=== PATIENT | female | born 1940 | race Caucasian/White ===

== ENCOUNTER 2018-11-09 06:16 | Emergency (ER) | payer MEDICARE, SELFPAY ==
[2018-11-09 06:16] VITALS: BP 142/67; PULSE 64; RESP 16; TEMP 36.4; O2SAT 98; BMI 33.3
--- NOTE | 2018-11-09 06:25 | RAD_ITS ---
STUDY: X-RAY - RIGHT HAND REASON FOR EXAM: Female, 78 years old. Right-sided hand pain after fall. TECHNIQUE: 3 view(s) of the hand. COMPARISON: None. FINDINGS: There is joint space narrowing of the radiocarpal articulation consistent with degenerative arthrosis. Normal distal radioulnar joint. There is diffuse demineralization of the carpal bones. Normal carpal articulations There is degenerative arthrosis of the carpometacarpal (CMC) articulation of the thumb. Normal second through fifth carpometacarpal joints. There is deformity of the proximal fifth metacarpal suggesting an acute fracture. The metacarpals otherwise have a normal appearance. There is degenerative arthrosis of the metacarpophalangeal (MCP) joints. There is degenerative arthrosis of the interphalangeal joint of the thumb with articular joint space narrowing. Normal proximal and distal phalanges of the thumb. Normal metacarpophalangeal joints of the second through fifth fingers. There is diffuse articular joint space narrowing of the proximal and distal interphalangeal joints of the second through fifth fingers, but without erosive changes or periarticular soft tissue swelling. Normal phalanges of the second through fifth fingers. There is moderately severe periarticular soft tissue swelling of the fingers. RAD/Hand Min 3 Views IMPRESSION: 1. Acute fracture of the proximal fifth metacarpal. 2. Soft tissue swelling of the fingers. 3. 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 4. Osteopenia. Electronically Signed: Lorri Wang MD at 7:13 EDT , Service support ,
--- NOTE | 2018-11-09 06:25 | CT_ITS ---
STUDY: CT BRAIN WITHOUT CONTRAST REASON FOR EXAM: Female, 78 years old. Status post fall with closed head injury and soft tissue contusion. RADIATION DOSAGE (If Supplied By Facility): CTDIvol = ( 44.99 ) mGy, DLP = ( 779.24 ) mGycm TECHNIQUE: Transaxial CT imaging of the brain was performed without administration of intravenous contrast material. Multiplanar reformations are submitted for interpretation. Individualized dose optimization techniques were used for this CT. COMPARISON: None. FINDINGS: There is a large right paramedian frontal hematoma with soft tissue emphysema consistent with associated laceration. There may be some associated right-sided preseptal orbital soft tissue edema. Normal calvarium. There appear to be multiple punctate parenchymal calcifications. This may be the result of previous infection. There is mild cerebral atrophy with widening of the extra-axial spaces and ventricular dilatation. There are areas of decreased attenuation within the white matter tracts of the supratentorial brain, consistent with microvascular disease changes. Normal basal ganglia and thalami. Normal brainstem. Normal cerebellum. There is no intracranial hemorrhage. There is mild atherosclerotic calcification of the intracranial arteries. There are small mucous retention cyst left maxillary sinus. CT/Brain/Head without Contrast IMPRESSION: 1. Chronic involutional changes of the brain. 2. No CT evidence of acute intracranial hemorrhage. 3. Large right paramedian frontal and forehead hematoma. 4. Multiple parenchymal calcifications suggest sequela of previous infection. Electronically Signed: Lorri Wang MD at 7:58 EDT , Service support ,
--- NOTE | 2018-11-09 06:26 | ED.VIS.GEN ---
History of Present Illness Chief Complaint: Fall Informant: Patient, Family Narrative: She stated that she tripped over the dog leash just prior to arrival. She fell onto the concrete. She struck her right forehead and cheek. She also injured the lateral aspect of her fifth little finger. No loss of consciousness. No blood thinners. She has localized tenderness to each of these regions. Denies any neck pain or injury or other injury to her body. Current severity is mild to moderate. No nausea vomiting or other symptoms. No headache. Past Medical History - Allergies and Home Meds Allergies/Adverse Reactions: Allergies No Known Allergies Allergy (Verified 11/09/18 06:31) Primary Care Physician: Rachell Bates MD [Primary Care Provider] - Prior records reviewed: Yes Past Medical History: - - Reviewed Surgical History: noncontributory Lives: With Family Alcohol: None Drugs: None Review of Systems General: Denies: Chills, Fever, Sweats Eyes: Denies: Visual changes - bilaterally, Diplopia ENT: Denies: Rhinorrhea, Sore throat Cardiovascular: Denies: Chest pain, Palpitations Respiratory: Denies: Dyspnea, Cough, Dyspnea on exertion Gastrointestinal: Denies: Abdominal pain, Nausea, Vomiting, Diarrhea, Melena, Hematochezia Genitourinary: Denies: Dysuria, Hematuria, Frequency Musculoskeletal: Reports: Extremity Pain, - - History of present illness. Denies: Back pain Skin: Reports: Abrasions, Wounds, - - See HPI. Denies: Rash Neurological: Reports: Headache. Denies: Weakness, Numbness Physical Exam Vital Signs/Narrative: Vital Signs Temp Pulse Resp BP Pulse Ox 11/09/18 06:16 97.6 F L 64 16 142/67 H 98 General: Well nourished, Well developed, No Acute Distress Head: Trauma - She has superficial abrasion around her right eyebrow. She has an abrasion to her right cheek as well. No bony step-off or deformity. Patient has very superficial laceration just above her right eyebrow. Soft tissue swelling.. Negative for: Normocephalic, Atraumatic Eyes: Perrl, EOMI ENT: Moist mucous membranes, No rhinorrhea Neck: Supple, Nontender Cardiovascular: Regular rate, Regular rhythm, No murmurs Respiratory: No distress, CTA bilaterally, Chest nontender Abdomen: Soft, Nontender, Nondistended, Normal bowel sounds Back: Nontender, Normal Inspection Extremities: No edema, Tenderness - He has tenderness over a small 0.5 cm laceration to the lateral aspect of the right fifth finger. Mild swelling. Skin: Trauma, - - Above Neurological: Alert, Oriented x3, Cranial nerves II-XII grossly intact, Normal Strength, Normal Sensation Psychological: Normal affect, Normal Mood Diagnostic/Tx/Re-eval - Medical Decision Making Given injection of morphine. Tetanus updated. CT head and x-ray of the right hand obtained. CT neg for acute pathology. Mild soft tissue swelling to the scalp. Fifth metacarpal fracture nondisplaced noted. Her wounds were cleansed her right finger was washed with chlorhexidine and anesthetized with 2 cc of 1% lidocaine. It was closed with 4 simple sutures. Her scalp wound was cleansed. She had 3 sutures placed in a laceration in her scalp. I placed a ulnar gutter splint Ortho-Glass prefab to her right hand. She will follow-up with orthopedics. ED Disposition - Plan for ED Patient: Disposition: [facility] - NA Diagnosis: Forehead abrasion, Finger laceration, Multiple contusions, Hand fracture, right Instructions: ED Mechanical Fall, ED Laceration All Referrals: Rachell Bates MD [Primary Care Provider] - Jimmie Bravo MD [STAFF PHYSICIAN] -
[2018-11-09] MEDS: Morphine 2 MG/ML Syringe IM (06:34)
[2018-11-09] MEDS: Diphth,Pertuss(Acell),Tet Vac 0.5 ML Vial IM (06:38)
[2018-11-09 08:18] VITALS: BP 138/65; PULSE 88; RESP 18; O2SAT 97
== END 2018-11-09 08:19 | disposition home or self-care (01) ==
PROVIDERS: Emergency Provider Emergency Medicine; Family Provider Internal Medicine; PCP Internal Medicine
DX: S01.01XA Laceration without foreign body of scalp, initial encounter (principal); S61.216A Laceration without foreign body of right little finger without damage to nail, initial encounter; S62.306A Unspecified fracture of fifth metacarpal bone, right hand, initial encounter for closed fracture; W01.0XXA Fall on same level from slipping, tripping and stumbling without subsequent striking against object, initial encounter; Y93.K1 Activity, walking an animal; Y92.9 Unspecified place or not applicable; Y99.9 Unspecified external cause status; Z23 Encounter for immunization; Z79.899 Other long term (current) drug therapy
CPT/HCPCS: 12001; 70450; 73130; 90715; 96372; 99284

== ENCOUNTER → 2020-05-26 15:30 | Outpatient (CLI) | payer MEDICARE, SELFPAY ==
--- NOTE | 2020-05-26 16:35 | RAD_ITS ---
STUDY: X-RAY - ABDOMEN/PELVIS REASON FOR EXAM: Female, 79 years old. CHEST PAIN, HX COLITIS TECHNIQUE: 1 view COMPARISON: None. FINDINGS: Moderate elevation of right diaphragm. Nondistended stomach and small bowel. Mild nonspecific minimal increase in small bowel gas and a moderate general increase in colonic bowel gas without a substantial amount of stool. Negative for free air. Negative organomegaly, abdominal or pelvic calcifications. Normal soft tissue structures. There are diffuse degenerative changes of the visualized lumbar spine. RAD/Abdomen Single View IMPRESSION: Nonspecific moderate general increase in colonic bowel gas without evidence of obstruction or substantial solid stool. Nondistended stomach and small bowel. Negative for organomegaly, abdominal or pelvic calcifications. Electronically Signed: Елена Harrison MD at 17:03 EDT , Service support ,
--- NOTE | 2020-05-26 16:37 | RAD_ITS ---
STUDY: X-RAY CHEST REASON FOR EXAM: Female, 79 years old. CHEST PAIN, BRONCHITIS TECHNIQUE: Frontal and lateral views of the chest. COMPARISON: None. FINDINGS: Mild elevation of the right hemidiaphragm. The lungs are clear and expanded. There is no demonstrated pleural abnormality. Normal size heart. Normal mediastinum and behzad. Normal visualized pulmonary arteries. Normal visualized aortic arch and descending thoracic aorta. There are diffuse degenerative changes of the visualized thoracic spine. Normal visualized ribs, clavicles, and shoulders. There is no demonstrated abnormality of the visualized soft tissue structures of the upper abdomen. RAD/Chest PA and Lateral IMPRESSION: No acute pulmonary findings. Electronically Signed: Rodger Jerome MD at 0:12 EDT Tel , Service support ,
[2020-05-26 18:21] LABS: Absolute Lymphocyte Count 1.81 X10^3/uL (0.83-4.51); Basophil# 0.05 X10^3/uL; Eosinophil# 0.17 X10^3/uL; Eosinophils% 3.4 % (0-5); Hematocrit 41.7 % (37-47); Hemoglobin 13.5 g/dL (12.0-15.0); Lymphocyte # 1.81 X10^3/ul (4.0); Lymphocyte % 36.2 % (19-41); Mean Corp Hgb Conc 32.4 g/dL (32-36); Mean Corpuscular Hgb 32.5 pg (27.0-32.0); Mean Corpuscular Volume 100.5 fL (81-99); Mean Platelet Vol. 11.2 fl (6.2-12.0); Monocyte# 0.94 X10^3/uL; Monocyte% 18.8 % (0-10); NRBC Flagged by Analyzer 0 % (0-5); Neutrophil # 2.02 X10^3/uL (2.7-7.7); Neutrophil % 40.4 % (47-70); Platelet Count 190 K/mm3 (150-450); RBC Distribution Width CV 13.4 % (11.6-14.6); RBC Distribution Width SD 49.5 fl (35.1-43.9); Red Blood Count 4.15 M/mm3 (4.2-5.4)
[2020-05-26 18:35] LABS: D-Dimer Quantitative (DVT/PE) 0.82 FEU/ug/m (0.27-0.49)
[2020-05-26 18:50] LABS: Vitamin D,25 Hydroxy 71.2 ng/mL
[2020-05-26 19:05] LABS: ALB/GLOB Ratio 0.9 RATIO (0.9-2.4); AST(SGOT) 21 U/L (15-37); Alanine Aminotransfer ALT/SGPT 23 U/L (13-56); Albumin, Serum 3.5 g/dL (3.2-5.0); Alkaline Phosphatase 110 U/L (45-117); Anion Gap 5 (5-15); BUN 11 mg/dL (7-18); BUN/Creat Ratio 12.2 RATIO (10-20); CPK Total, Creatine Kinase 73 U/L (26-192); Calcium,Total 8.5 mg/dL (8.5-10.1); Chloride 105 mmol/L (98-107); EST Glomerular Filtration Rate 64 mL/min (>60); Est Glom Filt Rate - Afr Amer 77 mL/min (>60); Globulin 3.7 g/dL (2.2-4.2); Glucose 89 mg/dL (74-106); Potassium 3.3 mmol/L (3.5-5.1); Protein, Total 7.2 g/dL (6.4-8.2); Sodium Level 139 mmol/L (136-145); Thyroid Stim Hormone (TSH) 2.19 uIU/mL (0.358-3.74)
[2020-05-26 19:06] LABS: BNP,B-Type NATRIURETIC PEPTIDE 62.5 pg/mL (0-100)
[2020-05-28 10:31] LABS: Myoglobin, Serum 42 ng/mL (25-58)
== END ==
LOC: POLAB3 15:31 → RAD 16:34
PROVIDERS: PCP Family Medicine Geriatric Medicine; Referring Provider Family Medicine Geriatric Medicine; Visit Provider Family Medicine Geriatric Medicine
DX: R07.9 Chest pain, unspecified (principal); R06.02 Shortness of breath; I10 Essential (primary) hypertension; E55.9 Vitamin D deficiency, unspecified
CPT/HCPCS: 36415; 71046; 74018; 80053; 82306; 82550; 83874; 83880; 84443; 84484; 85025; 85379

== ENCOUNTER → 2020-05-27 09:05 | Outpatient (CLI) | payer MEDICARE, SELFPAY | PROVIDERS: PCP Family Medicine Geriatric Medicine; Referring Provider Family Medicine Geriatric Medicine; Visit Provider Family Medicine Geriatric Medicine | DX: R50.9 Fever, unspecified (principal) | CPT/HCPCS: 87633; 87635; C9803; U0003 ==

== ENCOUNTER → 2020-06-26 08:24 | Outpatient (CLI) | payer MEDICARE, SELFPAY ==
[2020-06-03 14:20] VITALS: BMI 36.6
--- NOTE | 2020-06-26 08:24 | CT_ITS ---
STUDY: CT CHEST WITH CONTRAST REASON FOR EXAM: Female, 79 years old. BRONCHITIS,RHINOVIRUS, LT SHOUDER/ARM PAIN RADIATION DOSAGE (If Supplied By Facility): CTDIvol = ( 13.99 ) mGy, DLP = ( 567.84 ) mGycm TECHNIQUE: Transaxial imaging was performed following intravenous administration of IV 100mL Isovue-300. Multiplanar coronal and sagittal images were reformatted. Individualized dose optimization techniques were used for this CT. COMPARISON: None. FINDINGS: Minimal degree of increased markings at the right lung base suggestive of mild scarring. No focal consolidation is seen. Minimal left basilar scarring as well. There is no demonstrated pleural abnormality. There are calcifications of the coronary arteries. Normal mediastinum. Normal hilar regions. Normal enhanced pulmonary arteries. Normal aorta arch and descending thoracic aorta. There are multi-level degenerative changes of the thoracic spine. There is no demonstrated abnormality of the visualized upper abdomen. CT/Chest WITH Contrast IMPRESSION: Mild scarring at the lung bases. No pulmonary infiltrate is seen. Electronically Signed: Josep Elkins, at 10:35 EDT , Service support ,
--- NOTE | 2020-06-26 08:24 | ECHOCS_ITS ---
Reason For Study: Dyspnea/SOB Procedure This was a 2D Doppler, Color Flow transthoracic echocardiogram. The study was technically difficult. Contrast injection was performed. Exam performed in department. Left Ventricle Normal LV size. Left ventricular systolic function is normal. The estimated ejection fraction is 60 %. No regional wall motion abnormalities noted. Right Ventricle Normal RV size. Normal systolic function. Atria Normal left atrium. Normal right atrium. Mitral Valve There is mild mitral annular calcification. Mild (1+) eccentric mitral valve insufficiency. Tricuspid Valve Normal tricuspid valve. Mild (1+) tricuspid valve insufficiency. Pulmonary artery systolic pressure is 36 mmHg. Aortic Valve Trisinus/trileaflet aortic valve. Mild (1+) aortic valve insufficiency. Pulmonic Valve Normal pulmonic valve. Great Vessels Normal aortic root. The pulmonary artery is normal size. Normal inferior vena cava. Pericardium/Pleural No pericardial effusion. Medication Diluted definity 2ml given slow IV push to enhance endocardial definition. Performed a rapid injection of agitated mix of 9 cc saline and 1cc air to assess for atrial septal defect. MMode/2D Measurements & Calculations LVIDd: 3.7 cm IVSd: 1.3 cm LA dimension: 3.4 cm LVIDs: 2.2 cm LVPWd: 0.99 cm FS: 40.9 % LAV(MOD-sp4): 48.8 ml LA A4 area: 17.5 cm2 RA A4 area: 13.1 cm2 Time Measurements MV dec time: 0.17 sec Doppler Measurements & Calculations MV E max mingo: 79.8 cm/sec Lat Peak E' Mingo: 5.8 cm/sec Med Peak E' Mingo: 6.8 cm/sec MV A max mingo: 119.7 cm/sec E/E' lat: 13.7 E/E' med: 11.8 MV E/A: 0.67 MV V2 max: 126.6 cm/sec MV P1/2t max mingo: 90.6 cm/sec Ao V2 max: 156.0 cm/sec MV max P.4 mmHg MV P1/2t: 77.6 msec Ao max P.7 mmHg MV V2 mean: 66.6 cm/sec MV dec slope: 342.3 cm/sec2 MV mean P.2 mmHg MV V2 VTI: 31.0 cm MVA(P1/2t): 2.8 cm2 AI max mingo: 421.2 cm/sec LV V1 max: 127.8 cm/sec PA V2 max: 94.4 cm/sec AI max P.0 mmHg LV V1 max P.5 mmHg AI dec slope: 272.2 cm/sec2 AI P1/2t: 453.2 msec TR max mingo: 286.8 cm/sec TR max P.9 mmHg Interpretation Summary Normal LV size. Left ventricular systolic function is normal. The estimated ejection fraction is 60 %. Mild (1+) eccentric mitral valve insufficiency. Mild (1+) aortic valve insufficiency. Pulmonary artery systolic pressure is 36 mmHg. Contrast injection was performed. Ordering Physician: Anthony Manning Referring Physician: Ghanshyam Rey Chi Performed By: Steve Swann RCS
--- NOTE | 2020-06-26 13:19 | STRESSREP_ITS ---
Stress Test Report Pharmacologic myocardial perfusion stress test. 79-year-old lady with a history of chest pain. Stress protocol: Resting KG demonstrates normal sinus rhythm with a rate of 73 bpm normal intervals are noted resting blood pressure is 132/84 mmHg. 0.4 mg of regadenoson was infused per usual protocol followed Intravenous saline flush injection continuous vehicle monitor technician was performed. The maximum heart rate attained was 114 bpm which was 81% of maximum predicted heart rate the maximum workload was 1 metabolic equivalent. The initial blood pressure was 132/84 with a final blood pressure 128/82. Myocardial perfusion protocol. 15.0 mCi of technetium 99m sestamibi was injected at rest. 0.4 mg of regadenoson was infused per usual protocol. At peak infusion 44.0 mCi of technetium 99m sestamibi was injected stress images were obtained stress and rest images were reconstructed and compared in the short axis vertical long horizontal long axis. Gated images were also obtained per Perfusion SPECT analysis: Review of the stress images demonstrate normal uptake of tracer noted in all areas of the myocardium the resting images similar demonstrate normal uptake of tracer noted in all areas of the myocardium. No areas of reversibility are noted suggest ischemia no previous infarct is noted. Gated SPECT analysis: The gated ejection fraction is over 80%. Conclusion: Normal pharmacologic myocardial perfusion stress test. Preserved ejection fraction.
== END ==
PROVIDERS: PCP Internal Medicine; Referring Provider Internal Medicine Cardiovascular Disease; Visit Provider Internal Medicine Cardiovascular Disease
DX: R06.02 Shortness of breath (principal); R07.9 Chest pain, unspecified
CPT/HCPCS: 71260; 78452; 93017; 93306; A9500; Q9957; Q9967; A4216; C8929; J2785

== ENCOUNTER → 2020-07-08 15:31 | Outpatient (CLI) | payer MEDICARE, SELFPAY ==
[2020-06-03 14:20] VITALS: BMI 36.6
[2020-07-08 19:00] LABS: CRP < 2.90 mg/L (0.0-3.0)
[2020-07-10 16:08] LABS: Endomysial Antibody IgA Negative (Negative)
[2020-07-10 17:42] LABS: Immunoglobulin A 342 mg/dL (64-422); t-Transglutaminase IgA <2 U/mL (0-3)
== END ==
PROVIDERS: PCP Internal Medicine; Referring Provider Internal Medicine Gastroenterology; Visit Provider Internal Medicine Gastroenterology
DX: R19.7 Diarrhea, unspecified (principal)
CPT/HCPCS: 36415; 82784; 83516; 86140; 86255

== ENCOUNTER → 2020-07-17 | Outpatient (CLI) | payer MEDICARE, SELFPAY ==
[2020-07-10 08:19] VITALS: BMI 35.8
--- NOTE | 2020-07-17 11:36 | COLBX_PTH ---
PATIENT: COOPER ALONZO LOC: [facility] U#:[id number] AGE/SX: 80/F ROOM: RE07/17/[address]: Dr. Kwabena Howard MD : 1940 BED: DIS: 07/17/2020 SPEC #: [id number] RECD: 07/17/20 15:24 STATUS: CLARENCE RESkylar #: [id number] GINA: 07/17/20 11:[address]: Kwabena Howard DEPT: SURGICAL PATHOLOGY RECD BY: Farheen Gardner ENTERED: 07/20/20 07:27 SP TYPE: COLON BX OTHR DR: Dr. Rachell Bates MD [facility] Tissues: COLON BIOPSY Procedures: Trichrome (control) Special Stain Group II Surgery Specimen Level IV HEADER OPERATION: Colonoscopy with biopsies PRE-OP DIAGNOSIS: Diarrhea TISSUE SUBMITTED: Right and left colon biopsies, rule out microscopic colitis MICROSCOPIC DIAGNOSIS Right and left colon, biopsy: Lymphocytic colitis. See comment. AM:chago 07/21/20 MICROSCOPIC DESCRIPTION Slides are reviewed. GROSS DESCRIPTION Received in fixative is one container labeled with the patient's name and designated right and left colon biopsy. The specimen consists of multiple irregular fragments of light ramos soft tissue that in aggregate measure 1.5 x 0.7 x 0.1 cm. The specimen is totally submitted in one cassette. / AM:chago 07/20/20 TC:3 CPT: 20583, 99159
== END | disposition home or self-care (01) ==
LOC: LABSPEC 15:44
PROVIDERS: PCP Internal Medicine; Visit Provider Internal Medicine Gastroenterology
DX: K52.9 Noninfective gastroenteritis and colitis, unspecified (principal)
CPT/HCPCS: 88305; 88313

== ENCOUNTER 2020-09-25 12:44 | Outpatient (RCR) | payer MEDICARE, SELFPAY ==
[2020-07-10 08:19] VITALS: BMI 35.8
== END 2020-09-25 23:59 ==
LOC: IMMUN 12:44
PROVIDERS: PCP Family Medicine Geriatric Medicine; Referring Provider Family Medicine; Visit Provider Family Medicine
DX: Z23 Encounter for immunization (principal)
CPT/HCPCS: 0011A; 0012A; 91301

== ENCOUNTER → 2020-11-05 12:30 | Outpatient (CLI) | payer MEDICARE, SELFPAY ==
[2020-07-10 08:19] VITALS: BMI 35.8
--- NOTE | 2020-11-05 12:40 | RAD_ITS ---
STUDY: X-RAY - LUMBAR SPINE REASON FOR EXAM: Female, 80 years old. LOW BACK PAIN TECHNIQUE: 3 view(s) of the lumbar spine were obtained. COMPARISON: None FINDINGS: Normal lumbar lordosis. There is no substantial scoliosis. There is a normal alignment of the vertebrae from L1 to L4. There is a grade 1 spondylolisthesis at L4-5. There is anatomic alignment of L5 and S1.. There is multilevel endplate spondylosis of the lumbar vertebrae. There is multi-level degenerative disc disease with multi-level disc space narrowing. There is a chronic compression fracture affecting the superior endplate of L4. No acute fracture There is atherosclerotic calcification of the abdominal aorta without a demonstrated aneurysm. RAD/Lumbar Spine 2 or 3 Views IMPRESSION: Degenerative changes of the spine, as detailed above. No acute fracture. Chronic compression fracture at L4 Grade 1 spondylolisthesis at L4-5 Electronically Signed: Ernesto Mckeon MD at 13:17 EST , Service support ,
== END ==
PROVIDERS: PCP Family Medicine Geriatric Medicine; Visit Provider Family Medicine Geriatric Medicine
DX: M54.5 Low back pain (principal)
CPT/HCPCS: 72100

== ENCOUNTER 2020-11-13 09:16 | Emergency (ER) | payer MEDICARE, SELFPAY ==
[2020-07-10 08:19] VITALS: BMI 35.8
[2020-11-13 09:17] VITALS: BP 191/78; PULSE 72; RESP 18; TEMP 36.4; O2SAT 98; BMI 36.6
[2020-11-13 09:32] VITALS: RESP 16
--- NOTE | 2020-11-13 09:32 | CT_ITS ---
STUDY: CT LUMBAR SPINE WITHOUT CONTRAST REASON FOR EXAM: Female, 80 years old. Back pain. Difficulty with ambulation. RADIATION DOSAGE (If Supplied By Facility): CTDIvol = ( 34.48 ) mGy, DLP = ( 915.60 ) mGycm TECHNIQUE: The patient was scanned in a multi detector CT scanner. High resolution transaxial imaging was performed. Images were obtained from L1 to S1 vertebral level. Sagittal and coronal images were reconstructed. Individualized dose optimization techniques were used for this CT. COMPARISON: None FINDINGS: Normal lumbar lordosis. There is no substantial scoliosis. Normal vertebrae of the lumbar spine. L1-2: Normal endplates. Normal disc height and morphology. Normal bilateral facet joints. Normal central canal and bilateral lateral recesses. Normal bilateral intervertebral neural foramina. L2-3: Normal endplates. Normal disc height and morphology. Normal bilateral facet joints. Normal central canal and bilateral lateral recesses. Normal bilateral intervertebral neural foramina. L3-4: Moderate degree of central canal stenosis due to hypertrophy of the facet joints and the ligamentum flavum. L4-5: 10% loss of height of the superior endplate of the L4 vertebra suggestive of possible compression fracture. Moderate degree of central canal stenosis due to hypertrophy of the facet joints and the ligamenta flava. Moderate degree of bilateral neural foraminal stenosis. Minimal anterior listhesis of L4 on L5 most likely secondary to the facet joint osteoarthritis. 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 L5-S1: Normal endplates. Normal disc height and morphology. Normal bilateral facet joints. Normal central canal and bilateral lateral recesses. Normal bilateral intervertebral neural foramina. Atherosclerotic calcification of the abdominal aorta. CT/Spine Lumbar without Contrast IMPRESSION: 10% loss of height of the L4 vertebrae most likely secondary to compression fracture with mild anterior listhesis of L4 on L5. Spinal stenosis at the L4-L5 and L5-S1 levels. Electronically Signed: Josep Elkins MD at 10:45 EDT , Service support ,
--- NOTE | 2020-11-13 09:33 | ED.VIS.GEN ---
History of Present Illness Chief Complaint: Back Informant: Patient Narrative: 80-year-old female presenting with lumbar back pain. She states that she recently had injections from Dr. Rey. She states she was getting more mobility but today when she was getting dressed her back started to hurt and she is unable to walk at this point. She denies saddle paresthesias or loss of bladder or bowel control. She has not fallen. Patient states she has distant history of lumbar laminectomy multiple years ago. She denies any other complaints at this time. Past Medical History - Allergies and Home Meds Allergies/Adverse Reactions: Allergies mesalamine [From Asacol] Allergy (Verified 11/13/20 09:20) unknown trazodone Allergy (Verified 11/13/20 09:20) Unknown Primary Care Physician: Rangel Teixeira DO [STAFF PHYSICIAN] - Ghanshyam Rey Chi, MD [Primary Care Provider] - Past Medical History: - - Lightest, hypothyroidism, hypertension Surgical History: - - lumbar laminectomy Lives: Alone Smoking Status: Never smoker Alcohol: None Drugs: None Review of Systems General: Denies: Chills, Fever, Sweats Eyes: Denies: Visual changes - bilaterally, Diplopia ENT: Denies: Rhinorrhea, Sore throat Cardiovascular: Denies: Chest pain, Palpitations Respiratory: Denies: Dyspnea, Cough, Dyspnea on exertion Gastrointestinal: Denies: Abdominal pain, Nausea, Vomiting, Diarrhea, Melena, Hematochezia Genitourinary: Denies: Dysuria, Hematuria Musculoskeletal: Reports: Back pain. Denies: Neck pain, Swelling, Extremity Pain Skin: Denies: Rash, Wounds Neurological: Denies: Headache, Weakness, Parasthesia Psych: Denies: Depression, Anxiety Physical Exam Vital Signs/Narrative: Vital Signs Temp Pulse Resp BP Pulse Ox 11/13/20 09:32 16 11/13/20 09:17 97.5 F L 72 18 191/78 H 98 Inital Vital Signs reviewed: Yes General: Well nourished, No Acute Distress Head: Normocephalic, Atraumatic Eyes: Perrl, EOMI ENT: Moist mucous membranes, No rhinorrhea Cardiovascular: Regular rate, Regular rhythm Respiratory: No distress, CTA bilaterally Back: - - Bilateral lumbar paraspinal muscular tenderness. There is no midline spinal tenderness, deformity, step-off. Extremities: Nontender, No edema Skin: Normal color, No rash. Negative for: Cyanosis, Diaphoresis Neurological: Alert, Oriented x3, Cranial nerves II-XII grossly intact Psychological: Normal affect, Normal Mood Diagnostic/Tx/Re-eval Clinical Impression(s) from Imaging Studies Lumbar Spine CT 11/13/20 09:32 IMPRESSION: 10% loss of height of the L4 vertebrae most likely secondary to compression fracture with mild anterior listhesis of L4 on L5. Spinal stenosis at the L4-L5 and L5-S1 levels. Electronically Signed: Josep Elkins MD at 10:45 EDT , Service support , Laboratory Data 11/13/20 09:45 Sodium 143 Potassium 4.0 Chloride 107 Carbon Dioxide 32.0 Anion Gap 4 L BUN 20 H Creatinine 0.93 Estim Creat Clear Calc 37.52 Est GFR (MDRD) Af Amer 74 Est GFR (MDRD) Non-Af 62 BUN/Creatinine Ratio 21.5 H Glucose 101 Calcium 8.9 Total Bilirubin 0.70 AST 16 ALT 26 Alkaline Phosphatase 120 H Total Protein 6.9 Albumin 3.5 Globulin 3.4 Albumin/Globulin Ratio 1.0 - Medical Decision Making 80-year-old female presenting with lumbar back pain. Appears she has compression fracture. I did obtain CT imaging of this today since her pain is worsening. Patient's lab work-up was unremarkable. CT imaging shows 0% loss of height of the L4 vertebrae most likely secondary to compression fracture with mild anterior listhesis of L4 on L5. Patient was given IV Solu-Medrol, morphine for pain. After this I personally ambulated the patient at the bedside and she felt much improved. She will be discharged home with a short supply of [place] and prednisone. She will follow-up with Dr. Teixeira. Patient safe for discharge at this time. Impression: 1. L4 compression fracture ED Disposition - Plan for ED Patient: Disposition: Home or Assisted Living Instructions: ED Fracture, Vertebral Compression Prescriptions: Hydrocodone Bitart/Apap 5-325 [[place] 5MG-325MG] 1 tablet PO Q6H PRN PRN 3 Days #12 tab PRN Reason: Pain Prescription Printed Hydrocodone Bitart/Apap 5-325 [[place] 5MG-325MG] 1 tablet PO Q6H PRN PRN 3 Days #12 tab PRN Reason: Pain Prescription Printed predniSONE tablet 60 mg PO DAILY #3 tab Prescription Printed predniSONE tablet 60 mg PO DAILY #12 tab Prescription Printed Referrals: Ghanshyam Rey Chi, MD [Primary Care Provider] - Rangel Teixeira DO [STAFF PHYSICIAN] -
[2020-11-13] MEDS: Ondansetron 4 MG/2 ML Vial IV (09:48)
[2020-11-13] MEDS: Morphine 4 MG/ML Syringe IV (09:50)
[2020-11-13] MEDS: MethylPREDNISolone 125 MG/2 ML Vial IV (09:50)
[2020-11-13 10:20] LABS: AST(SGOT) 16 U/L (15-37); Alanine Aminotransfer ALT/SGPT 26 U/L (13-56); Albumin, Serum 3.5 g/dL (3.2-5.0); Alkaline Phosphatase 120 U/L (45-117); Anion Gap 4 (5-15); BUN 20 mg/dL (7-18); BUN/Creat Ratio 21.5 RATIO (10-20); Calcium,Total 8.9 mg/dL (8.5-10.1); Chloride 107 mmol/L (98-107); Creatinine, Serum 0.93 mg/dL (0.55-1.02); EST Glomerular Filtration Rate 62 mL/min (>60); Est Glom Filt Rate - Afr Amer 74 mL/min (>60); Estimated Creatinine Clearance 37.52 ml/min; Globulin 3.4 g/dL (2.2-4.2); Glucose 101 mg/dL (74-106); Protein, Total 6.9 g/dL (6.4-8.2); Sodium Level 143 mmol/L (136-145)
[2020-11-13 11:50] VITALS: PULSE 68; RESP 20; O2SAT 95
== END 2020-11-13 11:50 | disposition home or self-care (01) ==
PROVIDERS: Emergency Provider Student in an Organized Health Care Education/Training Program; PCP Family Medicine Geriatric Medicine
DX: S32.048A Other fracture of fourth lumbar vertebra, initial encounter for closed fracture (principal); I10 Essential (primary) hypertension; E03.9 Hypothyroidism, unspecified; X58.XXXA Exposure to other specified factors, initial encounter
CPT/HCPCS: 72131; 80048; 80053; 96374; 96375; 99282; A4216; J2405

== ENCOUNTER → 2020-11-19 07:59 | Outpatient (CLI) | payer MEDICARE, SELFPAY ==
[2020-11-13 09:17] VITALS: BMI 36.6
--- NOTE | 2020-11-19 08:01 | MRI_ITS ---
STUDY: MRI LUMBAR SPINE WITHOUT CONTRAST REASON FOR EXAM: Female, 80 years old. Pain, compression fracture L4 TECHNIQUE: Standardized fat and water weighted pulse sequences were obtained in the sagittal and axial planes. COMPARISON: X-ray 11/05/2020, CT 11/13/2020 FINDINGS: T12-L1: Normal endplates. Normal disc height, hydration and morphology. Normal bilateral facet joints. Normal central canal and bilateral lateral recesses. Normal bilateral intervertebral neural foramina. Normal lumbar lordosis. There is no substantial scoliosis. Normal conus medullaris that terminates at the L1/L2. Acute mild compression fracture of L1 with concavity of the superior endplate cortical disruption and marrow edema along the superior endplate but no retropulsion into the spinal canal. Acute mild compression fracture of L4 with concavity the superior endplate and no retropulsion into the spinal canal. L1-2: Normal endplates. Normal disc height, hydration and morphology. Normal bilateral facet joints. Normal central canal and bilateral lateral recesses. Normal bilateral intervertebral neural foramina. L2-3: Mild bilateral facet hypertrophy and moderate ligament flavum hypertrophy. Mild broad disc protrusion produces mild spinal stenosis and mild bilateral neural foraminal stenosis. L3-4: Mild right facet hypertrophy and moderate left facet hypertrophy with moderate ligament flavum hypertrophy. Mild broad disc protrusion produces mild spinal stenosis and mild bilateral neural foraminal stenosis. L4-5: Severe bilateral facet hypertrophy and moderate ligament flavum hypertrophy. 2 mm of anterolisthesis of L4 on L5 with a mild broad disc protrusion produces mild spinal stenosis and mild bilateral neural foraminal stenosis. L5-S1: Normal endplates. Normal disc height, hydration and morphology. Normal bilateral facet joints. Normal central canal and bilateral lateral recesses. Normal bilateral intervertebral neural foramina. Normal visualized sacral ala. Normal visualized paraspinous soft tissue structures. MRI/Spine Lumbar (Routine) IMPRESSION: 1. Acute mild compression fractures of L1 and L4 along the superior endplates without retropulsion into the spinal canal. 2. Degenerative disc disease as described above. Electronically Signed: Cameron Alvarez MD at 9:37 EDT Tel , Service support ,
== END ==
PROVIDERS: PCP Family Medicine Geriatric Medicine
DX: S32.040A Wedge compression fracture of fourth lumbar vertebra, initial encounter for closed fracture (principal)
CPT/HCPCS: 72148

== ENCOUNTER 2020-11-25 07:57 | Emergency (ER) | payer MEDICARE, SELFPAY ==
[2020-11-25 08:00] VITALS: BP 191/77; PULSE 91; RESP 16; TEMP 36.6; O2SAT 99; BMI 36.8
--- NOTE | 2020-11-25 08:16 | CT_ITS ---
STUDY: CT ABDOMEN AND PELVIS WITH CONTRAST REASON FOR EXAM: Female, 80 years old. abd pain RADIATION DOSAGE (If Supplied By Facility): CTDIvol = ( 23.74 ) mGy, DLP = ( 1724.13 ) mGycm TECHNIQUE: Transaxial images were obtained from the dome of the diaphragm to the symphysis pubis without oral contrast. IV 100mL Isovue-300 was administered. Sagittal and coronal images were reconstructed. Individualized dose optimization techniques were used for this CT. COMPARISON: MRI lumbar spine dated 11/19/2020 FINDINGS: The visualized lung bases are unremarkable. Normal liver. There is non-visualization of the gallbladder, which may be secondary to either contraction or a prior cholecystectomy. Normal spleen. Unremarkable right kidney. Unremarkable left kidney. There is a small hiatal hernia. Normal small intestine. There are multiple colonic diverticula consistent with diverticulosis. There are surgical clips in the region of the appendix consistent with a prior appendectomy. There is atherosclerotic calcification of the abdominal aorta. Normal urinary bladder. There is a small umbilical hernia containing fat. Again noted are the lumbar spine fractures at L1 and L4. CT/Abdomen/Pelvis W IV Cont ONLY IMPRESSION: No bowel obstruction, colitis or diverticulitis. Diverticulosis. Electronically Signed: Harinder Lindsey MD at 9:32 EDT Tel , Service support ,
[2020-11-25] MEDS: 0.9% Normal Saline 1,000 ML 125 ML IV (08:24)
[2020-11-25] MEDS: Ondansetron 4 MG/2 ML Vial IV (08:24)
[2020-11-25 08:25] LABS: Absolute Lymphocyte Count 2.35 X10^3/uL (0.83-4.51); Basophil# 0.04 X10^3/uL; Basophil% 0.3 % (0-1); Eosinophil# 0.08 X10^3/uL; Eosinophils% 0.7 % (0-5); Hematocrit 45.1 % (37-47); Hemoglobin 14.7 g/dL (12.0-15.0); Lymphocyte # 2.35 X10^3/ul (4.0); Lymphocyte % 20.1 % (19-41); Mean Corp Hgb Conc 32.6 g/dL (32-36); Mean Corpuscular Hgb 32.5 pg (27.0-32.0); Mean Corpuscular Volume 99.6 fL (81-99); Mean Platelet Vol. 10.4 fl (6.2-12.0); Monocyte# 1.18 X10^3/uL; Monocyte% 10.1 % (0-10); NRBC Flagged by Analyzer 0 % (0-5); Neutrophil # 7.98 X10^3/uL (2.7-7.7); Neutrophil % 68.5 % (47-70); Platelet Count 279 K/mm3 (150-450); RBC Distribution Width CV 13.8 % (11.6-14.6); RBC Distribution Width SD 50.2 fl (35.1-43.9); Red Blood Count 4.53 M/mm3 (4.2-5.4); White Blood Count 11.7 K/mm3 (4.4-11.0)
[2020-11-25 08:36] LABS: ALB/GLOB Ratio 0.9 RATIO (0.9-2.4); AST(SGOT) 14 U/L (15-37); Alanine Aminotransfer ALT/SGPT 22 U/L (13-56); Albumin, Serum 3.7 g/dL (3.2-5.0); Alkaline Phosphatase 149 U/L (45-117); Anion Gap 4 (5-15); BUN 24 mg/dL (7-18); BUN/Creat Ratio 22.9 RATIO (10-20); Calcium,Total 9.2 mg/dL (8.5-10.1); Chloride 100 mmol/L (98-107); Creatinine, Serum 1.05 mg/dL (0.55-1.02); EST Glomerular Filtration Rate 53 mL/min (>60); Est Glom Filt Rate - Afr Amer 65 mL/min (>60); Estimated Creatinine Clearance 33.23 ml/min; Glucose 119 mg/dL (74-106); Lipase 86 U/L (73-393); Potassium 3.9 mmol/L (3.5-5.1); Protein, Total 7.7 g/dL (6.4-8.2); Sodium Level 135 mmol/L (136-145)
--- NOTE | 2020-11-25 08:52 | ED.VISSUMM ---
- ER Visit Summary Date of Service: 11/25/20 Chief Complaint: Abdominal pain History of Present Illness: The patient is a [address] Rey. She reports that she has abdominal pain that began yesterday. It is a constant aching pain with intermittent sharp episodes. 6 out of 10 at worst and she is pain-free currently. Is worsened by pushing on it. Is relieved remaining still. She had nausea and dry heaves. She reports that she had had a bowel movement for 3 days. She took a dose of milk of magnesia yesterday and has had 3 bowel movements since yesterday. No blood in stools or black tarry stools. No dysuria or frequency. Patient reports she had a colonoscopy a couple months ago by Dr. Howard. Physical Examination: Vitals: Stable. Afebrile. General: Well-nourished and well-developed. Head: Normocephalic atraumatic. Neck: Supple, no lymphadenopathy. No JVD. Nontender. Cardiovascular: Regular rate and rhythm. No murmurs. Respiratory: No respiratory distress. Clear to auscultation bilaterally. Abdominal: Soft, mild diffuse tenderness to palpation, nondistended, normal bowel sounds. No guarding, rebound, or peritoneal signs. Back: Nontender. Extremities: Nontender, no edema. Skin: Normal color, no rash. Neurologic: Alert and oriented ?3. Cranial nerves II through XII are intact. Normal strength and sensation. Psych: Normal affect. Test Results: CBC shows a white count 11.7. Chem-7 shows sodium 135, glucose 119, BUN 24, creatinine 1.05. Alk phos is 149. AST is 14. LFTs are otherwise normal. Lipase is 86. EKG is sinus at [address] changes. There is no old EKG for comparison. Troponin is negative. BNP is 20.3. Lactic acid is 1.1. Clinical Impression(s) from Imaging Studies Abdomen/Pelvis CT 11/25/20 08:16 IMPRESSION: No bowel obstruction, colitis or diverticulitis. Diverticulosis. Electronically Signed: Harinder Lindsey MD at 9:32 EDT Tel , Service support , Emergency Department Course and Treatment: Patient had an IV placed. She was given Zofran and morphine IV. She is resting more comfortably. Treatment Plan: Patient is complaining of severe back pain. Chart review shows patient had an MRI 6 days ago that shows acute mild compression fracture of L1 and L4 without retropulsion. She actually has an appointment to see Dr. Gacría in a week. I discussed patient with him and he states that he can see her in the office today. Patient is given another dose of morphine to get her through that appointment. Disposition: Discharged in stable condition. Impression: 1. Abdominal pain, uncertain cause. 2. L1 and L4 compression fractures, acute. This note was generated with [employer] dictation software. It may contain incorrect words, spelling, and punctuation that were not noted in review of the chart prior to signing ED Disposition - Plan for ED Patient: Instructions: ED Fracture, Vertebral Compression Referrals: Lesia Rae MD [STAFF PHYSICIAN] - 11/25/20
[2020-11-25] MEDS: Morphine 4 MG/ML Syringe IV ×3 (09:18→13:52)
[2020-11-25 10:00] VITALS: PULSE 82; RESP 16
[2020-11-25 11:00] VITALS: BP 145/42; PULSE 88; RESP 16; O2SAT 95
[2020-11-25 11:53] LABS: Lactic Acid 1.1 mmol/L (0.4-1.9)
--- NOTE | 2020-11-25 12:22 | EKG12_ITS ---
Test Reason : VOMMITTING Blood Pressure : / mmHG Vent. Rate : 083 BPM Atrial Rate : 083 BPM P-R Int : 164 ms QRS Dur : 072 ms QT Int : 388 ms P-R-T Axes : 061 -07 018 degrees QTc Int : 455 ms Sinus rhythm with Premature atrial complexes Low voltage QRS Inferior infarct , age undetermined , age undetermined Abnormal ECG Confirmed by SAURABH RODRIGUES, EDISON ([id number]), digital editor DARREL SALVADOR ([id number]) on 11/27/2020 12:43:50 PM Referred By: ASTER Confirmed By:EDISON WILEY MD
[2020-11-25 12:27] LABS: Bacteria 0 SEEN /hpf (None Seen); Mucous, Urine 0 SEEN /hpf (<or=2+); Red Blood Cells-Urine 0 SEEN /hpf (0-5); Squamous Epithelial Cells - UA 0 SEEN /hpf (5-10); White Blood Cells 0 SEEN /hpf (0-5)
--- NOTE | 2020-11-25 12:27 | NURSING ---
NO OLD EKGS
[2020-11-25 12:28] LABS: Color, Urine Yellow (Yellow); Glucose, Dipstick Normal (Normal); Ketone-Dipstick Negative (Negative); Leukocyte Esterase-Dipstick 25 /ul (Negative); Nitrite-Dipstick Negative (Negative); Occult Blood-Urine Negative /ul (Negative); Protein-Dipstick Negative (Negative); Urine Bilirubin Dipstick Negative (Negative); Urine Clarity Clear (Clear); Urine Urobilinogen Normal (Normal)
[2020-11-25 12:51] LABS: BNP,B-Type NATRIURETIC PEPTIDE 20.3 pg/mL (0-100)
[2020-11-25 13:10] VITALS: BP 163/55; PULSE 79; RESP 15; O2SAT 96
[2020-11-25 14:05] VITALS: BP 162/74; PULSE 69; RESP 16; O2SAT 97
== END 2020-11-25 14:06 | disposition home or self-care (01) ==
LOC: ED 08:45
PROVIDERS: Emergency Provider Emergency Medicine; PCP Family Medicine Geriatric Medicine
DX: R10.9 Unspecified abdominal pain (principal); S32.019A Unspecified fracture of first lumbar vertebra, initial encounter for closed fracture; S32.049A Unspecified fracture of fourth lumbar vertebra, initial encounter for closed fracture; X58.XXXA Exposure to other specified factors, initial encounter; Y93.9 Activity, unspecified; Y92.9 Unspecified place or not applicable; Y99.9 Unspecified external cause status; I10 Essential (primary) hypertension; Z79.899 Other long term (current) drug therapy
CPT/HCPCS: 74177; 80053; 81001; 83605; 83690; 83880; 84484; 85025; 93005; 96361; 96374; 96375; 96376; 99285; J7030; P9612; Q9967; A4216; J2405

== ENCOUNTER 2020-12-19 10:14 | Observation (INO) | payer MEDICARE, SELFPAY ==
[2020-12-19 10:15] VITALS: BP 163/83; PULSE 75; RESP 16; TEMP 36.1; O2SAT 97; BMI 35.6
--- NOTE | 2020-12-19 10:40 | CM.ED ---
SOCIAL WORK Referral Source: Dr. Gamino Reason for Consult: Discharge Planning Case discussed with Dr. Gamino. Per Dr. Gamino, patient was seen in Dr. Rey's office yesterday and is wanting TCU. Dr. Gamino inquiring if patient can be admitted to TCU today from ER. Call to Margie with admissions. Per Margie, attempted admission to TCU yesterday from Dr. Rey's office. Patient will need precert. Discussed with Dr. Gamino, patient to be admitted. Margie from TCU to follow up Monday. Plan: Admit with plan for [facility] Sandra Chacon, UTILITY TELLER, SUBSTATION SUPERINTENDENT
[2020-12-19] MEDS: Morphine 4 MG/ML Syringe IV (11:07)
[2020-12-19] MEDS: Ondansetron 4 MG/2 ML Vial IV (11:07)
--- NOTE | 2020-12-19 11:20 | ED.VISSUMM ---
- ER Visit Summary Date of Service: 12/19/20 Chief Complaint: Back pain History of Present Illness: The patient is a [address] Rey. Patient has a history of spinal stenosis. She also recently had L2 and L4 compression fractures. She reports that she had kyphoplasty of L4 on December [address] Rae. She does report that she had significant relief following that. However, she is still having severe pain. She had a nerve block 8 days ago without any relief. Patient reports that she has a sharp lower back pain is 10 of 10 worsening to 10 currently. Is worsened by movement. Is relieved by remaining still. Minimal relief with tramadol. She denies any radiation to her legs. She does report that it radiates further up her back. No numbness or tingling. She reports no urinary retention or fecal incontinence. Patient reports she does feel short of breath when the pain is severe. She denies any fever, chills, cough. Physical Examination: Vitals: Stable. Afebrile. General: A&O x 3. NAD. Cardiovascular exam: Regular rate and rhythm, no murmur, rub or gallop. Respiratory exam: Clear to auscultation bilaterally. No wheezes or stridor. Abdominal exam: Soft, nontender, nondistended, normal bowel sounds. No peritoneal signs. Back: Diffuse moderate tenderness to palpation over the lumbar spine and the paraspinous musculature in the lumbar region. No point tenderness. Negative straight leg bilaterally. 5/5 DF, PF, EHL bilaterally. Normal sensation to light touch throughout. Extremity: No clubbing, cyanosis, 2+ pitting edema lower extremities bilaterally. 2+ dorsalis pedis pulses bilaterally. Test Results: CBC shows a white count of 11.8 with 11 monocytes, 17 lymphocytes, immature granulocytes 2.9%. Chem-7 shows a BUN of 24. LFTs show an alk phos of 120 and total bili of 1.1. Emergency Department Course and Treatment: Patient had an IV placed. She was given morphine and Zofran IV. Treatment Plan: Patient was discussed with Dr. Rey as well as with case management. At this time she is not able to go home safely. She will be admitted to the hospital. Plan is to get her to rehab when possible. Disposition: Admitted in stable condition. Impression: 1. Low back pain. 2. Spinal stenosis. This note was generated with [employer] dictation software. It may contain incorrect words, spelling, and punctuation that were not noted in review of the chart prior to signing ED Disposition - Plan for ED Patient: Referrals: Ghanshyam Rey Chi, MD [Primary Care Provider] -
[2020-12-19 11:25] LABS: Absolute Lymphocyte Count 2.01 X10^3/uL (0.83-4.51); Absolute Neutrophil Count 8.2 X10^3/uL (2.0-7.7); Basophil# 0.02 X10^3/uL; Basophil% 0.2 % (0-1); Hematocrit 40.6 % (37-47); Hemoglobin 13.5 g/dL (12.0-15.0); Lymphocyte # 2.01 X10^3/ul (0.83-4.51); Mean Corp Hgb Conc 33.3 g/dL (32-36); Mean Corpuscular Volume 99.3 fL (81-99); Mean Platelet Vol. 10.3 fl (6.2-12.0); Monocyte# 1.24 X10^3/uL; Monocyte% 10.5 % (0-10); NRBC Flagged by Analyzer 0 % (0-5); Neutrophil # 8.23 X10^3/uL (2.7-7.7); Neutrophil % 69.4 % (47-70); Platelet Count 227 K/mm3 (150-450); RBC Distribution Width CV 13.5 % (11.6-14.6); RBC Distribution Width SD 49.8 fl (35.1-43.9); Red Blood Count 4.09 M/mm3 (4.2-5.4); White Blood Count 11.8 K/mm3 (4.4-11.0)
[2020-12-19 11:46] LABS: AST(SGOT) 37 U/L (15-37); Alanine Aminotransfer ALT/SGPT 27 U/L (13-56); Albumin, Serum 3.3 g/dL (3.2-5.0); Alkaline Phosphatase 120 U/L (45-117); Anion Gap 5 (5-15); BUN 24 mg/dL (7-18); BUN/Creat Ratio 25.1 RATIO (10-20); Calcium,Total 8.8 mg/dL (8.5-10.1); Chloride 102 mmol/L (98-107); Creatinine, Serum 0.96 mg/dL (0.55-1.02); EST Glomerular Filtration Rate 59 mL/min (>60); Est Glom Filt Rate - Afr Amer 72 mL/min (>60); Estimated Creatinine Clearance 36.35 ml/min; Globulin 3.3 g/dL (2.2-4.2); Glucose 95 mg/dL (74-106); Potassium 4.3 mmol/L (3.5-5.1); Protein, Total 6.6 g/dL (6.4-8.2); Sodium Level 137 mmol/L (136-145)
[2020-12-19 13:10] VITALS: BP 137/66; PULSE 69; RESP 16; TEMP 36.7; O2SAT 97
[2020-12-19 13:35] VITALS: BP 165/69; PULSE 72; RESP 18; TEMP 36.7; O2SAT 96
[2020-12-19 13:36] VITALS: BMI 36.1
[2020-12-19 13:48] VITALS: BMI 36.1
--- NOTE | 2020-12-19 14:00 | HP.PCM_ITS ---
Problem List (1) Essential (primary) hypertension Status: Chronic (2) Hypothyroidism Status: Chronic (3) Spinal stenosis Status: Chronic History of Present Illness Date of Admission: 12/19/20 Chief Complaint: Back pain. The patient is a 80 year old F who presents to the emergency room due to worsening back pain and debility. Patient reports chronic back pain that has recently worsened.She recently had L2 and L4 compression fractures and underwent kyphoplasty of L4 12/04/[address] Rae, pain management. She additionally underwent nerve block approximately 8 days ago. She states neither of these interventions provide her any pain relief. She denies pain radiation down her legs. Denies lower extremity numbness or tingling. Denies urinary or fecal incontinence. States pain is sharp in nature and she at times has difficulty ambulating due to severe pain. She lives alone and feels unsafe returning home, plan for rehab admission. She has a past medical history of hypertension, hypothyroidism. Past Medical History Past Medical History (Chronic Problems): Chronic Problems (Last Reviewed 07/10/20 @ 08:19 by Teetee Rm) Hypothyroidism (Chronic) Spinal stenosis (Chronic) Essential (primary) hypertension (Chronic) Medical History: Medical History (Last Reviewed 07/10/20 @ 08:19 by Teetee Rm) Essential (primary) hypertension (Chronic) I10 Colitis K52.9 Diarrhea R19.7 Hemorrhoids K64.9 Hypothyroidism E03.9 Obesity E66.9 Allergies mesalamine [From Asacol] Allergy (Verified 12/19/20 13:55) tore my stomach up trazodone Allergy (Verified 12/19/20 13:55) Hives Home Medications: Ambulatory Orders Medication Instructions Recorded Levothyroxine [Synthroid] 25 mcg PO DAILY 11/09/18 loperamide 2 mg capsule 2 mg PO Q6H PRN 06/03/20 cholecalciferol (vitamin D3) 25 1,000 unit PO DAILY tablet 07/10/20 mcg (1,000 unit) tablet lisinopril 10 mg tablet 10 mg PO DAILY #90 tablet 07/10/20 hydrocodone 5 mg-acetaminophen 325 1 tablet PO Q6H PRN #60 tablet 11/23/20 mg tablet Surgical History: Surgical History (Last Reviewed 07/10/20 @ 08:19 by Teetee Rm) History of cataract surgery Z98.49 History of cholecystectomy Z90.49 History of left heart catheterization Onset Date: 2008 [id number] History of tooth extraction K08.409 Surgical History: cholecystectomy, - - L4 kyphoplasty Psychiatric History: No pertinent psych hx BARMAN History: No pertinent BARMAN history Lives: Alone Smoking Status: Never smoker Alcohol: None Drugs: None - *Family History Paternal Family History: Family History (Last Reviewed 12/19/20 @ 14:06 by Coco Chavez NP, IMPREGNATOR HELPER-C) Father Sudden cardiac , Onset Age: 90 Mother Sudden cardiac , Onset Age: 52 Brother Aneurysm, Onset Age: 70 Sister CAD (coronary artery disease) Maternal Family History: Family History (Last Reviewed 12/19/20 @ 14:06 by Coco Chavez NP, IMPREGNATOR HELPER-C) Father Sudden cardiac , Onset Age: 90 Mother Sudden cardiac , Onset Age: 52 Brother Aneurysm, Onset Age: 70 Sister CAD (coronary artery disease) Review of Systems Constitutional: Denies: Chills, Fever, Weight Change HEENT: Denies: Head Aches, Sinus Congestion, Sinus Drainage Cardiovascular: Denies: Chest Pain, Palpitations Respiratory: Denies: Cough, Shortness of breath at rest, Sputum production Gastrointestinal: Denies: Abdominal Pain, Nausea, Vomiting Genitourinary: Denies: Dysuria Musculoskeletal: Reports: Back Pain Skin: Denies: Rash, Wounds Neurological: Denies: Numbness, Tingling, Focal weakness Psychiatric: Denies: Anxiety, Depression, Homicidal Ideations, Suicidal Ideations Hematologic/ Lymphatic: Denies: Easy Bruising, Easy Bleeding VTE Information - Inpt Only VTE Present on Admission: No VTE Mechan Device Prophylaxis: None VTE Pharm Prophylaxis ordered?: Yes - Physical Exam Vitals/I&O's: Vital Signs Temp Pulse Resp BP Pulse Ox 98.1 F 72 18 165/69 H 96 12/19/20 13:35 12/19/20 13:35 12/19/20 13:35 12/19/20 13:35 12/19/20 13:35 Oxygen Delivery Method Room Air Weight: 197 lb 5.019 oz Body Mass Index (BMI) 36.1 General: Alert, Oriented x3, Cooperative HEENT: Atraumatic, PERRLA, EOMI, Normocephalic Neck: Supple, No JVD, Negative Carotid Bruits Lungs: Clear to auscultation, Normal air movement Cardiovascular: Regular rate, No murmurs Abdomen: Bowel Sounds Present, Soft, Non Tender, Non-Distended Extremities: No clubbing, No cyanosis, No edema, Capillary Refill Less than 3 Seconds Skin: No rashes, No breakdown Musculoskeletal: No Tenderness to Palpation of Joints or Extremities Neurological: Cranial nerves II-XII grossly intact, Neuro grossly intact Psych/Mental Status: Normal Affect, Appropriate Laboratory Results 12/19/20 11:10: WBC 11.8 H, RBC 4.09 L, Hgb 13.5, Hct 40.6, MCV 99.3 H, MCH 33.0 H, MCHC 33.3, RDW Std Deviation 49.8 H, RDW Coeff of Alan 13.5, Plt Count 227, MPV 10.3, Immature Gran % (Auto) 2.900 H, Neut % (Auto) 69.4, Lymph % (Auto) 17.0 L, [place] % (Auto) 10.5 H, Eos % (Auto) 0.0, Baso % (Auto) 0.2, Absolute Neuts (auto) 8.2 H, Absolute Lymphs (auto) 2.01, Nucleated RBC % 0 12/19/20 11:10: Sodium 137, Potassium 4.3, Chloride 102, Carbon Dioxide 30.0, Anion Gap 5, BUN 24 H, Creatinine 0.96, Estim Creat Clear Calc 36.35, Est GFR (MDRD) Af Amer 72, Est GFR (MDRD) Non-Af 59 L, BUN/Creatinine Ratio 25.1 H, Glucose 95, Calcium 8.8, Total Bilirubin 1.10 H, AST 37, ALT 27, Alkaline Phosphatase 120 H, Total Protein 6.6, Albumin 3.3, Globulin 3.3, Albumin/Globulin Ratio 1.0 Current Medications Acetaminophen (Acetaminophen 325 Mg Tablet) 650 mg PO Q6H PRN PRN PRN Reason: Pain Score 1-10/Temp > 100.7 F Cholecalciferol (Cholecalciferol (Vit D3) 25 Mcg Tablet (1,000 Units)) 25 mcg PO DAILY [facility] Dexamethasone Sodium Phosphate (Dexamethasone 4 Mg/Ml Vial) 4 mg IV Q8 [facility] Enoxaparin Sodium (Enoxaparin 40 Mg/0.4 Ml Syringe) 40 mg SC DAILY@0600 [facility] Gabapentin (Gabapentin 100 Mg Capsule) 100 mg PO TIDCM [facility] Levothyroxine Sodium (Levothyroxine 25 Mcg Tablet) 25 mcg PO DAILY@0600 [facility] Lisinopril (Lisinopril 10 Mg Tablet) 10 mg PO DAILY [facility] Loperamide HCl (Loperamide 2 Mg Capsule) 2 mg PO Q6H PRN PRN PRN Reason: Diarrhea Morphine Sulfate (Morphine 2 Mg/Ml Syringe) 2 mg IV Q3H PRN PRN PRN Reason: Pain Score 6-10 Ondansetron HCl (Ondansetron 4 Mg/2 Ml Vial) 4 mg IV Q8H PRN PRN PRN Reason: NAUSEA/VOMITING Oxycodone HCl (Oxycodone 5 Mg Tablet) 5 mg PO Q4H PRN PRN PRN Reason: Pain Score 4-5 Sodium Chloride (0.9% Saline Lock 10 Ml Syringe) 10 - 40 ml IV UD PRN PRN Reason: SALINE FLUSH Assessment/Plan All Active Problems (Last Reviewed 07/10/20 @ 08:19 by Teetee Rm) Chest pain (Resolved) 1. Acute on chronic back pain with debility secondary to underlying moderate spinal stenosis at L4-L5, degenerative disc disease and recent L2 and L4 compression fractures-recent kyphoplasty of L4 12/04/20. Consult Dr. Rae. PRN pain regimen. IV decadron. PT/OT. CM consult for DC planning/Rehab. 2. Hypertension- stable, on lisinopril. 3. Hypothyroidism-continue Synthroid. 4. Vitamin D deficiency-continue supplementation. DVT prophylaxis-Lovenox subcu This patient was seen by JAVIER Bright under the supervision of Dr. Saenz.
[2020-12-19] MEDS: 0.9% Saline Lock 10 ML Syringe IV ×2 (14:09→21:38)
[2020-12-19] MEDS: dexAMETHasone 4 MG/ML Vial IV ×2 (14:09→21:36)
[2020-12-19] MEDS: Morphine 2 MG/ML Syringe IV (14:09)
[2020-12-19] MEDS: oxyCODONE 5 MG Tablet PO (18:08)
[2020-12-19 18:20] VITALS: BP 125/59; PULSE 82; RESP 18; TEMP 36.9; O2SAT 94
[2020-12-19 21:29] VITALS: BP 131/63; PULSE 71; RESP 18; TEMP 36.8; O2SAT 95
[2020-12-19] MEDS: Gabapentin 100 MG Capsule PO (21:36)
[2020-12-19] MEDS: HYDROcodone Bitartrate/Apap 5/325 Tablet PO ×2 (22:34→23:28)
[2020-12-20 03:38] VITALS: BP 143/58; PULSE 71; RESP 18; TEMP 36.5; O2SAT 100
[2020-12-20] MEDS: Levothyroxine 25 MCG TABLET PO (05:13)
[2020-12-20] MEDS: Enoxaparin 40 MG/0.4 ML Syringe SC (05:14)
[2020-12-20] MEDS: dexAMETHasone 4 MG/ML Vial IV ×3 (05:14→21:10)
[2020-12-20] MEDS: 0.9% Saline Lock 10 ML Syringe IV ×4 (05:14→20:12)
[2020-12-20] MEDS: HYDROcodone Bitartrate/Apap 5/325 Tablet PO (05:21)
[2020-12-20] MEDS: Lisinopril 10 MG Tablet PO (08:28)
[2020-12-20] MEDS: Furosemide 40 MG Tablet PO (08:28)
[2020-12-20] MEDS: Cholecalciferol (VIT D3) 25 MCG TABLET (1,000 UNITS) PO (08:29)
[2020-12-20 08:52] VITALS: BP 125/68; PULSE 73; RESP 16; TEMP 36.9; O2SAT 93
[2020-12-20] MEDS: Acetaminophen 325 MG Tablet 650 MG PO (08:59)
--- NOTE | 2020-12-20 09:30 | PN_ITS ---
Subjective: Patient seen and examined. Reports pain is controlled at this time, slept well overnight. No new complaints. - Physical Exam Vitals/I&O's: Vital Signs Temp Pulse Resp BP Pulse Ox 98.5 F 73 16 125/68 H 93 12/20/20 08:52 12/20/20 08:52 12/20/20 08:52 12/20/20 08:52 12/20/20 08:52 Oxygen Delivery Method Room Air Weight: 197 lb 5.019 oz Body Mass Index (BMI) 36.1 Intake and Output for Last 24 Hours 12/18/20 12/19/20 12/20/20 23:59 23:59 23:59 Intake Total 240 / 340 200 / 200 Balance 240 / 340 200 / 200 General: Alert, Oriented x3, Cooperative HEENT: Atraumatic, PERRLA, EOMI, Normocephalic Neck: Supple, No JVD, Negative Carotid Bruits Lungs: Clear to auscultation, Normal air movement Cardiovascular: Regular rate, No murmurs Abdomen: Bowel Sounds Present, Soft, Non Tender, Non-Distended Extremities: No clubbing, No cyanosis, No edema, Capillary Refill Less than 3 Seconds Skin: No rashes, No breakdown Musculoskeletal: No Tenderness to Palpation of Joints or Extremities Neurological: Cranial nerves II-XII grossly intact, Neuro grossly intact Psych/Mental Status: Normal Affect, Appropriate Laboratory Results 12/19/20 11:10: WBC 11.8 H, RBC 4.09 L, Hgb 13.5, Hct 40.6, MCV 99.3 H, MCH 33.0 H, MCHC 33.3, RDW Std Deviation 49.8 H, RDW Coeff of Alan 13.5, Plt Count 227, MPV 10.3, Immature Gran % (Auto) 2.900 H, Neut % (Auto) 69.4, Lymph % (Auto) 17.0 L, [place] % (Auto) 10.5 H, Eos % (Auto) 0.0, Baso % (Auto) 0.2, Absolute Neuts (auto) 8.2 H, Absolute Lymphs (auto) 2.01, Nucleated RBC % 0 12/19/20 11:10: Sodium 137, Potassium 4.3, Chloride 102, Carbon Dioxide 30.0, Anion Gap 5, BUN 24 H, Creatinine 0.96, Estim Creat Clear Calc 36.35, Est GFR (MDRD) Af Amer 72, Est GFR (MDRD) Non-Af 59 L, BUN/Creatinine Ratio 25.1 H, Glucose 95, Calcium 8.8, Total Bilirubin 1.10 H, AST 37, ALT 27, Alkaline Phosphatase 120 H, Total Protein 6.6, Albumin 3.3, Globulin 3.3, Albumin/Globulin Ratio 1.0 Current Medications Acetaminophen (Acetaminophen 325 Mg Tablet) 650 mg PO Q6H PRN PRN PRN Reason: Pain Score 1-10/Temp > 100.7 F Last Admin: 12/20/20 08:59 Dose: 650 mg Documented by: Hydrocodone Bitart/Acetaminophen (Hydrocodone Bitartrate/Apap 5/325 Tablet) 1 - 2 tablet PO Q6H PRN PRN PRN Reason: Pain Score 1-5 Last Admin: 12/20/20 05:21 Dose: 1 tablet Documented by: Cholecalciferol (Cholecalciferol (Vit D3) 25 Mcg Tablet (1,000 Units)) 25 mcg PO DAILY [facility] Last Admin: 12/20/20 08:29 Dose: 25 mcg Documented by: Dexamethasone Sodium Phosphate (Dexamethasone 4 Mg/Ml Vial) 4 mg IV Q8 [facility] Last Admin: 12/20/20 05:14 Dose: 4 mg Documented by: Enoxaparin Sodium (Enoxaparin 40 Mg/0.4 Ml Syringe) 40 mg SC DAILY@0600 [facility] Last Admin: 12/20/20 05:14 Dose: 40 mg Documented by: Furosemide (Furosemide 40 Mg Tablet) 40 mg PO DAILY [facility] Last Admin: 12/20/20 08:28 Dose: 40 mg Documented by: Gabapentin (Gabapentin 100 Mg Capsule) 100 mg PO QHS [facility] Last Admin: 12/19/20 21:36 Dose: 100 mg Documented by: Levothyroxine Sodium (Levothyroxine 25 Mcg Tablet) 25 mcg PO DAILY@0600 [facility] Last Admin: 12/20/20 05:13 Dose: 25 mcg Documented by: Lisinopril (Lisinopril 10 Mg Tablet) 10 mg PO DAILY [facility] Last Admin: 12/20/20 08:28 Dose: 10 mg Documented by: Loperamide HCl (Loperamide 2 Mg Capsule) 2 mg PO Q6H PRN PRN PRN Reason: Diarrhea Morphine Sulfate (Morphine 2 Mg/Ml Syringe) 2 mg IV Q3H PRN PRN PRN Reason: Pain Score 6-10 Last Admin: 12/19/20 14:09 Dose: 2 mg Documented by: Ondansetron HCl (Ondansetron 4 Mg/2 Ml Vial) 4 mg IV Q8H PRN PRN PRN Reason: NAUSEA/VOMITING Oxycodone HCl (Oxycodone 5 Mg Tablet) 5 mg PO Q4H PRN PRN PRN Reason: Pain Score 6-10 Last Admin: 12/19/20 18:08 Dose: 5 mg Documented by: Sodium Chloride (0.9% Saline Lock 10 Ml Syringe) 10 - 40 ml IV UD PRN PRN Reason: SALINE FLUSH Last Admin: 12/20/20 05:14 Dose: 10 ml Documented by: Medical Necessity - Tobacco Use Smoking Status: Never smoker Assessment/Plan All Active Problems (Last Reviewed 07/10/20 @ 08:19 by Teetee Rm) Chest pain (Resolved) 1. Acute on chronic back pain with debility secondary to underlying moderate spinal stenosis at L4-L5, degenerative disc disease and recent L2 and L4 compression fractures-recent kyphoplasty of L4 12/04/20. Consult Dr. Rae. PRN pain regimen. IV decadron. PT/OT. CM consult for DC planning/Rehab. 2. Hypertension- stable, on lisinopril. 3. Hypothyroidism-continue Synthroid. 4. Vitamin D deficiency-continue supplementation. DVT prophylaxis-Lovenox subcu This patient was seen by JAVIER Bright under the supervision of Dr. Saenz.
[2020-12-20] MEDS: oxyCODONE 5 MG Tablet PO (12:17)
--- NOTE | 2020-12-20 12:58 | CT_ITS ---
STUDY: CT LUMBAR SPINE WITHOUT CONTRAST REASON FOR EXAM: Female, 80 years old. Lumbago, previous compression fracture acute on chronic back pain, prior canal stenosis RADIATION DOSAGE (If Supplied By Facility): CTDIvol = ( 30.81 ) mGy, DLP = ( 849.05 ) mGycm TECHNIQUE: CT of the lumbar spine was performed without contrast. Sagittal and coronal images were reconstructed. Individualized dose optimization techniques were used for this CT. COMPARISON: 13 November 2020 FINDINGS: Examination is severely technically limited due to patient''s large body habitus. Canal contents cannot be seen and image noise is elevated. Detection of subtle or small abnormalities is not possible. Lumbar spine is aligned. There is a new acute L1 compression fragmentation fracture which was not present on 13 November 2020. There is approximately 25% loss of height and a coronally oriented cleft the anterior from the middle portions of the vertebral body. There is minor infolding of the posterior cortex without retropulsion. Spinal canal is patent. There is stable moderate spondylotic thecal sac stenosis at L2-L3, L3-L4, severe at L4-L5. There has been placement of cement into compression fracture of L4 with approximately 25% loss of height. There is no posterior cortical retropulsion. Mineralization is severely decreased. SI joints are normal. Paraspinous soft tissues are normal. CT/Spine Lumbar without Contrast IMPRESSION: 1. New compression fracture of L1, neurosurgical consultation is advised. 2. Recent cementoplasty of L4 compression fracture. 3. Multilevel moderate and severe thecal sac stenosis. Electronically Signed: Srinivas Dangelo MD at 14:55 EDT Tel , Service support ,
[2020-12-20 13:30] VITALS: BP 111/61; PULSE 86; RESP 18; TEMP 36.3; O2SAT 98
[2020-12-20] MEDS: Morphine 2 MG/ML Syringe IV (14:45)
[2020-12-20 17:41] VITALS: BP 121/57; PULSE 87; RESP 16; TEMP 36.7; O2SAT 96
[2020-12-20 20:01] VITALS: BP 147/70; PULSE 99; RESP 18; TEMP 36.7; O2SAT 93
[2020-12-20] MEDS: Morphine 4 MG/ML Syringe IV (20:12)
[2020-12-20] MEDS: Gabapentin 100 MG Capsule PO (21:10)
[2020-12-21] VITALS (10 sets, daily range): BP systolic 108–152; BP diastolic 54–69; PULSE 61–73; RESP 16–20; TEMP 36.5–36.8; O2SAT 94–100; BMI 36.1
[2020-12-21] MEDS: HYDROcodone Bitartrate/Apap 5/325 Tablet PO ×2 (02:10→18:07)
[2020-12-21 05:27] LABS: Thyroid Stim Hormone (TSH) 1.46 uIU/mL (0.358-3.74)
[2020-12-21] MEDS: Lisinopril 10 MG Tablet PO (08:29)
--- NOTE | 2020-12-21 10:16 | PN_ITS ---
<Coco Chavez BEATER WORKER HELPER - Last Filed: 12/21/20 10:24> Subjective: Patient seen and examined. Reports increased lower back pain while up in chair. Denies new pain or symptoms. Awaiting pain management consult. - Physical Exam Vitals/I&O's: Vital Signs Temp Pulse Resp BP Pulse Ox 97.7 F L 64 16 140/65 H 98 12/21/20 08:27 12/21/20 08:27 12/21/20 08:27 12/21/20 08:27 12/21/20 08:27 Oxygen Delivery Method Room Air Weight: 197 lb 5.019 oz Body Mass Index (BMI) 36.1 Intake and Output for Last 24 Hours 12/19/20 12/20/20 12/21/20 23:59 23:59 23:59 Intake Total 240 / 340 700 / 700 Balance 240 / 340 700 / 700 General: Alert, Oriented x3, Cooperative HEENT: Atraumatic, PERRLA, EOMI, Normocephalic Neck: Supple, No JVD, Negative Carotid Bruits Lungs: Clear to auscultation, Normal air movement Cardiovascular: Regular rate, No murmurs Abdomen: Bowel Sounds Present, Soft, Non Tender Extremities: No clubbing, No cyanosis, No edema, Capillary Refill Less than 3 Seconds Skin: No rashes, No breakdown Musculoskeletal: No Tenderness to Palpation of Joints or Extremities Neurological: Cranial nerves II-XII grossly intact, Neuro grossly intact Psych/Mental Status: Normal Affect, Appropriate Laboratory Results 12/19/20 11:10: TSH 1.46 Current Medications Acetaminophen (Acetaminophen 325 Mg Tablet) 650 mg PO Q6H PRN PRN PRN Reason: Pain Score 1-10/Temp > 100.7 F Last Admin: 12/20/20 08:59 Dose: 650 mg Documented by: Hydrocodone Bitart/Acetaminophen (Hydrocodone Bitartrate/Apap 5/325 Tablet) 1 - 2 tablet PO Q6H PRN PRN PRN Reason: Pain Score 1-5 Last Admin: 12/21/20 02:10 Dose: 2 tablet Documented by: Cholecalciferol (Cholecalciferol (Vit D3) 25 Mcg Tablet (1,000 Units)) 25 mcg PO DAILY [facility] Last Admin: 12/21/20 08:58 Dose: Not Given Documented by: Docusate Calcium (Docusate Calcium 240 Mg Capsule) 240 mg PO BID [facility] Last Admin: 12/21/20 08:58 Dose: Not Given Documented by: Enoxaparin Sodium (Enoxaparin 40 Mg/0.4 Ml Syringe) 40 mg SC DAILY@0600 [facility] Last Admin: 12/21/20 06:39 Dose: Not Given Documented by: Furosemide (Furosemide 40 Mg Tablet) 40 mg PO DAILY [facility] Last Admin: 12/21/20 08:58 Dose: Not Given Documented by: Gabapentin (Gabapentin 100 Mg Capsule) 100 mg PO QHS [facility] Last Admin: 12/20/20 21:10 Dose: 100 mg Documented by: Levothyroxine Sodium (Levothyroxine 25 Mcg Tablet) 25 mcg PO DAILY@0600 [facility] Last Admin: 12/21/20 05:10 Dose: Not Given Documented by: Lisinopril (Lisinopril 10 Mg Tablet) 10 mg PO DAILY [facility] Last Admin: 12/21/20 08:29 Dose: 10 mg Documented by: Loperamide HCl (Loperamide 2 Mg Capsule) 2 mg PO Q6H PRN PRN PRN Reason: Diarrhea Morphine Sulfate (Morphine 2 Mg/Ml Syringe) 2 - 4 mg IV Q3H PRN PRN PRN Reason: Pain Score 6-10 Morphine Sulfate (Morphine 4 Mg/Ml Syringe) 2 - 4 mg IV Q3H PRN PRN PRN Reason: Pain Score 6-10 Last Admin: 12/20/20 20:12 Dose: 4 mg Documented by: Ondansetron HCl (Ondansetron 4 Mg/2 Ml Vial) 4 mg IV Q8H PRN PRN PRN Reason: NAUSEA/VOMITING Sodium Chloride (0.9% Saline Lock 10 Ml Syringe) 10 - 40 ml IV UD PRN PRN Reason: SALINE FLUSH Last Admin: 12/20/20 20:12 Dose: 10 ml Documented by: Medical Necessity - Tobacco Use Smoking Status: Never smoker Assessment/Plan All Active Problems (Last Reviewed 07/10/20 @ 08:19 by Teetee Rm) Chest pain (Resolved) 1. Acute on chronic back pain with debility secondary to underlying moderate spinal stenosis at L4-L5, degenerative disc disease and recent L2 and L4 compression fractures-recent kyphoplasty of L4 12/04/20. Consult Dr. Rae. PRN pain regimen. PT/OT. Plan for TCU pending acceptance/pain management consult. Gabapentin 100mg TID. IV decadron discontinued. 2. Hypertension- stable, on lisinopril. 3. Hypothyroidism-continue Synthroid. 4. Vitamin D deficiency-continue supplementation. DVT prophylaxis-Lovenox subcu This patient was seen by JAVIER Bright under the supervision of Dr. Escobedo. <Obdulia Escobedo - Last Filed: 12/21/20 13:17> - Physical Exam Vitals/I&O's: Vital Signs Temp Pulse Resp BP Pulse Ox 97.7 F L 63 20 H 142/63 H 99 12/21/20 11:25 12/21/20 11:25 12/21/20 11:25 12/21/20 11:25 12/21/20 11:25 Oxygen Delivery Method Room Air Weight: 89.5 kg Body Mass Index (BMI) 36.1 Intake and Output for Last 24 Hours 12/19/20 12/20/20 12/21/20 23:59 23:59 23:59 Intake Total 240 / 340 700 / 700 Balance 240 / 340 700 / 700 Laboratory Results 12/19/20 11:10: TSH 1.46 Current Medications Acetaminophen (Acetaminophen 325 Mg Tablet) 650 mg PO Q6H PRN PRN PRN Reason: Pain Score 1-10/Temp > 100.7 F Last Admin: 12/20/20 08:59 Dose: 650 mg Documented by: Hydrocodone Bitart/Acetaminophen (Hydrocodone Bitartrate/Apap 5/325 Tablet) 1 - 2 tablet PO Q6H PRN PRN PRN Reason: Pain Score 1-5 Last Admin: 12/21/20 02:10 Dose: 2 tablet Documented by: Cholecalciferol (Cholecalciferol (Vit D3) 25 Mcg Tablet (1,000 Units)) 25 mcg PO DAILY [facility] Last Admin: 12/21/20 08:58 Dose: Not Given Documented by: Docusate Calcium (Docusate Calcium 240 Mg Capsule) 240 mg PO BID [facility] Last Admin: 12/21/20 08:58 Dose: Not Given Documented by: Enoxaparin Sodium (Enoxaparin 40 Mg/0.4 Ml Syringe) 40 mg SC DAILY@0600 [facility] Last Admin: 12/21/20 06:39 Dose: Not Given Documented by: Furosemide (Furosemide 40 Mg Tablet) 40 mg PO DAILY [facility] Last Admin: 12/21/20 08:58 Dose: Not Given Documented by: Gabapentin (Gabapentin 100 Mg Capsule) 100 mg PO TID [facility] Last Admin: 12/21/20 11:22 Dose: Not Given Documented by: Lactated Ringer's () 1,000 mls @ 100 mls/hr IV .Q10H [facility] Last Admin: 12/21/20 13:04 Dose: 100 mls/hr Documented by: Levothyroxine Sodium (Levothyroxine 25 Mcg Tablet) 25 mcg PO DAILY@0600 [facility] Last Admin: 12/21/20 05:10 Dose: Not Given Documented by: Lisinopril (Lisinopril 10 Mg Tablet) 10 mg PO DAILY [facility] Last Admin: 12/21/20 08:29 Dose: 10 mg Documented by: Loperamide HCl (Loperamide 2 Mg Capsule) 2 mg PO Q6H PRN PRN PRN Reason: Diarrhea Morphine Sulfate (Morphine 2 Mg/Ml Syringe) 2 - 4 mg IV Q3H PRN PRN PRN Reason: Pain Score 6-10 Last Admin: 12/21/20 10:57 Dose: 2 mg Documented by: Morphine Sulfate (Morphine 4 Mg/Ml Syringe) 2 - 4 mg IV Q3H PRN PRN PRN Reason: Pain Score 6-10 Last Admin: 12/20/20 20:12 Dose: 4 mg Documented by: Ondansetron HCl (Ondansetron 4 Mg/2 Ml Vial) 4 mg IV Q8H PRN PRN PRN Reason: NAUSEA/VOMITING Sodium Chloride (0.9% Saline Lock 10 Ml Syringe) 10 - 40 ml IV UD PRN PRN Reason: SALINE FLUSH Last Admin: 12/21/20 10:58 Dose: 10 ml Documented by: Assessment/Plan This patient was seen in conjunction with Coco Chavez NP. I have independently interviewed and examined the patient and reviewed pertinent historical, laboratory, and other data. Please refer to her note for patient's presentation, findings, and recommendations. Patient was seen and examined. She complains of back pain, rates it 7 out of 10. She is going for epidural/kyphoplasty today. No acute events overnight. Vitals were reviewed -stable Physical Exam: Gen: Looks comfortable, obese, not pale, not jaundiced, alert oriented x3 CVS:HS I +II, regular, no murmurs RESP: CTA GI: BS present and normal, nontender, no palpable organs EXT:No edema Labs reviewed: ASSESSMENT: 1. Acute on chronic back pain 2. New L1 compression fracture 3. Hypertension 4. Hypothyroidism 5. Vitamin D deficiency Meds reviewed Plan: Follow-up on patient after procedure Continue with pain medications Discharge to long-term facility pending OBSV E&M: 38968 Subsequent observation care L2
--- NOTE | 2020-12-21 10:54 | CASEMGMT ---
Social Work Note SW placed a call to Margie with TCU. TCU is able to accept and will submit for pre-cert. Plan: TCU pending pre-cert Delmi Patterson MSW, LATHE PULLER
[2020-12-21] MEDS: Morphine 2 MG/ML Syringe IV (10:57)
[2020-12-21] MEDS: 0.9% Saline Lock 10 ML Syringe IV (10:58)
--- NOTE | 2020-12-21 13:00 | RAD_ITS ---
PROCEDURE: Epidural block. DATE OF EXAMINATION: 12/21/2020 INDICATION: Female, 80 years old. Chronic back pain. FLUOROSCOPY TIME (if supplied): (26 seconds) minutes/seconds. One image was submitted. Intraoperative imaging provided for epidural block at the T12-L1 level. RAD/Spine 1 View Any Level IMPRESSION: Intraoperative imaging provided for epidural block at the T12-L1 level. Electronically Signed: Josep Elkins MD at 14:57 EDT , Service support ,
[2020-12-21] MEDS: Lactated Ringers 1,000 ML 100 ML IV (13:04)
[2020-12-21] MEDS: Lidocaine 0.5% (50 ml) 50 ML Vial (14:13)
[2020-12-21] MEDS: Triamcinolone Acetonide 40 MG/ML Vial (14:14)
--- NOTE | 2020-12-21 15:12 | CASEMGMT ---
RN CM attempted to complete VASQUES form at this time. Patient is out of room at procedure at this time. RN CM to attempt to complete form at later time.
[2020-12-21] MEDS: Gabapentin 100 MG Capsule PO ×2 (15:45→19:49)
[2020-12-22 00:29] VITALS: BP 138/69; PULSE 73; RESP 16; TEMP 36.1; O2SAT 98
[2020-12-22] MEDS: Gabapentin 100 MG Capsule PO ×2 (05:40→13:55)
[2020-12-22] MEDS: HYDROcodone Bitartrate/Apap 5/325 Tablet PO (05:40)
[2020-12-22] MEDS: Enoxaparin 40 MG/0.4 ML Syringe SC (05:40)
[2020-12-22] MEDS: Levothyroxine 25 MCG TABLET PO (05:40)
[2020-12-22 08:10] VITALS: BP 141/82; PULSE 69; RESP 18; TEMP 36.7; O2SAT 94
--- NOTE | 2020-12-22 09:42 | CASEMGMT ---
NIEVES ALBA in room to complete VASQUES form with patient. RN PARTH explained VASQUES form to patient, patient voiced understanding. Patient signed VASQUES form and filed in chart. Patient provided with copy of signed VASQUES Form. Patient had no further questions or concerns at this time.
[2020-12-22] MEDS: Furosemide 40 MG Tablet PO (09:45)
[2020-12-22] MEDS: Cholecalciferol (VIT D3) 25 MCG TABLET (1,000 UNITS) PO (09:46)
[2020-12-22] MEDS: Lisinopril 10 MG Tablet PO (09:46)
--- NOTE | 2020-12-22 13:22 | CASEMGMT ---
Addendum entered by Delmi Patterson 12/22/20 16:46: BAUDILIO received update from PA that Peer to peer was approved. BAUDILIO updated Margie with TCU, pt can discharge to TCU today. PA updated. BAUDILIO in to speak with pt. SW updated pt that Peer to Peer was approved and pt will discharge to SNF. Pt states understanding. Pt states she will call her daughter to update. BAUDILIO updated Charge Nurse and Log Roller that pt can discharge to TCU once discharge paperwork is completed and pt's COVID results are available. Plan: TCU today TERESA Dior Addendum entered by Delmi Patterson 12/22/20 14:51: BAUDILIO placed a call to [facility] Peer to Peer line ([phone] option 4). Pt's reference number is [id number]. Peer to peer scheduled. BAUDILIO placed a call to Margie with TCU and updated her that peer to peer will be completed. Original Note: Social Work Note SW received call from Margie with TCU stating pt was denied. Peer to peer can be completed and has to be completed by 4:30pm today. [phone] option 4. BAUDILIO updated PA, PA willing to do peer to peer. BAUDILIO in to speak with pt. SW introduced self and role at [facility]. SW updated pt that she was denied SNF, PA to complete Peer to peer. BAUDILIO informed pt that denial may still be upheld and asked pt what her back up plan is in the event she gets denied. Pt states guess I will just go home. BAUDILIO informed pt that this worker will let her know once Peer to peer is complete and the outcome of the peer to peer. Pt states understanding. TERESA Dior
[2020-12-22 13:43] VITALS: BP 137/84; PULSE 99; RESP 20; TEMP 36.4; O2SAT 94
--- NOTE | 2020-12-22 15:59 | PCM.DC.SUM ---
Documented by User: Coco Chavez NP, EVENT REPRESENTATIVE-C 12/22/20 16:12 Providers Date of Admission: 12/19/20 Primary Care Physician: Dr. Ghanshyam Rey MD Consultations 12/20/20 12:59 Physician Consult Routine Consulting Provider: Lesia Rae Consulted Physician Type:: Other * Specify below * Reason for Consult: lumbar pain Method of Consult:: In-Person MD Notified: Yes Date Notified:: 12/20/20 Time Notified: 13:00 Method of Notification:: Verbal Reason For Visit: INTRACTABLE BACK PAIN Diagnosis Discharge Diagnosis (1) Essential (primary) hypertension: Status: Chronic Code(s): I10 - Essential (primary) hypertension (2) Hypothyroidism: Status: Chronic Code(s): E03.9 - Hypothyroidism, unspecified (3) Spinal stenosis: Status: Chronic Code(s): M48.00 - Spinal stenosis, site unspecified Medications at Discharge Home Medications levothyroxine 25 mcg PO DAILY 11/09/18 loperamide 2 mg capsule 2 mg PO Q6H PRN 06/03/20 cholecalciferol (vitamin D3) 25 mcg (1,000 unit) tablet 1,000 unit PO DAILY tablet 07/10/20 lisinopril 10 mg tablet 10 mg PO DAILY #90 tablet 07/10/20 hydrocodone 5 mg-acetaminophen 325 mg tablet 1 tablet PO Q6H PRN #60 tablet 11/23/20 furosemide 40 mg PO DAILY 12/19/20 gabapentin 100 mg PO TID #1 cap 12/22/20 Hospital Course Operations None Procedures None Summary of Care Provided Minutes Spent on Discharge: 35 Hospital Course: Patient is an 80-year-old female admitted 12/19/2020 due to back pain. 1. Acute on chronic back pain with debility secondary to underlying moderate spinal stenosis at L4-L5, degenerative disc disease and recent L1 and L4 compression fractures-recent kyphoplasty of L4 12/04/20. Pain management consulted, Dr. Rae. Gabapentin 100mg TID. IV decadron discontinued. As needed pain regimen. Lumbar spine CT shows new compression fracture of L1. Plan for kyphoplasty on 12/25/2020. Discharge to transitional care for further rehab and pain management. Continue plans for kyphoplasty. 2. Hypertension- stable, on lisinopril. 3. Hypothyroidism-continue Synthroid. 4. Vitamin D deficiency-continue supplementation. General: Alert, Oriented x3, Cooperative HEENT: Atraumatic, PERRLA, EOMI, Normocephalic Neck: Supple, No JVD, Negative Carotid Bruits Lungs: Clear to auscultation, Normal air movement Cardiovascular: Regular rate, No murmurs Abdomen: Bowel Sounds Present, Soft, Non Tender Extremities: No clubbing, No cyanosis, No edema, Capillary Refill Less than 3 Seconds Skin: No rashes, No breakdown Musculoskeletal: No Tenderness to Palpation of Joints or Extremities Neurological: Cranial nerves II-XII grossly intact, Neuro grossly intact Psych/Mental Status: Normal Affect, Appropriate Patient seen and examined prior to discharge. Physical assessment as noted above. Patient is stable for discharge with follow up recommendations as noted above. This patient was seen by JAVIER Bright under the supervision of Dr. Escobedo. ABG / Lab / Microbiology Data Result Diagrams: 12/19/20 11:10 12/19/20 11:10 D/C Instructions Discharge Diet: No restrictions Discharge Activity: Return to Normal Activity Please follow up with your Primary Care Physician in: 1 Week Please Follow Up With: Dr. Rae When: Monday for kyphoplasty Meaningful Use Info Meaningful Use Diagnoses (Choose all that apply): None applicable Discharge Plan Admission Admit Date/Time: 12/19/20 13:07 Attending Provider: Obdulia Escobedo Primary Care Provider: Ghanshyam eRy Chi Consulting Providers: Lesia Rae Discharge Orders/Prescriptions Prescriptions: New gabapentin 100 mg Capsule 100 mg PO TID Qty: 1 RF: 0 Continued loperamide 2 mg capsule 2 mg PO Q6H PRN (Reason: Diarrhea) RF: 0 cholecalciferol (vitamin D3) 25 mcg (1,000 unit) tablet 1,000 unit PO DAILY RF: 0 lisinopril 10 mg tablet 10 mg PO DAILY Qty: 90 RF: 3 hydrocodone-acetaminophen 5-325 mg tablet 1 tablet PO Q6H PRN (Reason: pain) Qty: 60 RF: 0 levothyroxine 25 MCG tablet 25 mcg PO DAILY RF: 0 furosemide 40 MG tablet 40 mg PO DAILY RF: 0 Referrals: Ghanshyam Rey Chi, MD [Primary Care Provider] - Disposition Patient Disposition: Care Home Facility Documented by User: Dr. Obdulia Escobedo MD 12/22/20 18:00 Providers Date of Admission: 12/19/20 Reason For Visit: INTRACTABLE BACK PAIN Medications at Discharge Home Medications levothyroxine 25 mcg PO DAILY 11/09/18 loperamide 2 mg capsule 2 mg PO Q6H PRN 06/03/20 cholecalciferol (vitamin D3) 25 mcg (1,000 unit) tablet 1,000 unit PO DAILY tablet 07/10/20 lisinopril 10 mg tablet 10 mg PO DAILY #90 tablet 07/10/20 hydrocodone 5 mg-acetaminophen 325 mg tablet 1 tablet PO Q6H PRN #60 tablet 11/23/20 furosemide 40 mg PO DAILY 12/19/20 gabapentin 100 mg PO TID #1 cap 12/22/20 ABG / Lab / Microbiology Data Result Diagrams: 12/19/20 11:10 12/19/20 11:10 Discharge Plan Admission Admit Date/Time: 12/19/20 13:07 Attending Provider: Obdulia Escobedo Primary Care Provider: Ghanshyam Rey Chi Consulting Providers: Lesia Rae Discharge Orders/Prescriptions Prescriptions: New gabapentin 100 mg Capsule 100 mg PO TID Qty: 1 RF: 0 Continued loperamide 2 mg capsule 2 mg PO Q6H PRN (Reason: Diarrhea) RF: 0 cholecalciferol (vitamin D3) 25 mcg (1,000 unit) tablet 1,000 unit PO DAILY RF: 0 lisinopril 10 mg tablet 10 mg PO DAILY Qty: 90 RF: 3 hydrocodone-acetaminophen 5-325 mg tablet 1 tablet PO Q6H PRN (Reason: pain) Qty: 60 RF: 0 levothyroxine 25 MCG tablet 25 mcg PO DAILY RF: 0 furosemide 40 MG tablet 40 mg PO DAILY RF: 0 Referrals: Ghanshyam Rey Chi, MD [Primary Care Provider] - Disposition Patient Disposition: Care Home Facility This patient was seen in conjunction with Coco Chavez NP. I have independently interviewed and examined the patient and reviewed pertinent historical, laboratory, and other data. Please refer to her note for patient's presentation, findings, and recommendations. 80-year-old female who comes with progressive back pain. She was found to have a new L1 compression fracture and recent L4 compression fracture. Patient was admitted for pain management. Pain management, Dr. Rae was consulted and she had an epidural injection done on 12/21/20. She will follow-up with Dr. Adams in the outpatient on 12/25/20 for kyphoplasty. On the day of discharge, patient was seen and examined. Her pain is much controlled. Vitals were reviewed -stable Physical Exam: Gen: Looks comfortable, obese, not pale, not jaundiced, alert oriented x3 CVS:HS I +II, regular, no murmurs RESP: CTA GI: BS present and normal, nontender, no palpable organs EXT:No edema Inpatient E&M: 30220 Disch Hosp
--- NOTE | 2020-12-22 16:12 | PCM.TXEXTCAR ---
Diet 12/21/20 15:40 Diet: Cardiac - Heart Healthy Is pt able to select menu?: Yes Routine Orders/Code Status Suppository Type: Dulcolax 10mg Suppository Frequency: Daily PRN Code Status: DNRCC-A Wound(s) BACK: Wound Type: Puncture Suggestions for Active Care Change Position every (hours): 2 Times a day to sit in chair: 3 Therapies Weight Bearing: Full weight bearing Physical Therapy: Eval and Treat Occupational Therapy: Eval and Treat Problem/Diagnosis (1) Essential (primary) hypertension: Status: Chronic (2) Hypothyroidism: Status: Chronic (3) Spinal stenosis: Status: Chronic Allergies/Procedures Done in Hospital Allergies mesalamine [From Asacol] Allergy (Verified 12/19/20 13:55) tore my stomach up trazodone Allergy (Verified 12/19/20 13:55) Hives Procedures: None Type of Care/Length of Stay Estimated LOS: Convalescent Care Less Than 30 days Type of Care Needed: Skilled Rehab Potential: Fair Prognosis: Fair Additional Orders/Day of Discharge H&P will serve as current which was dated: 12/19/20 Day of Discharge: 12/22/20 Follow Up Care Please follow up with your Primary Care Physician in: 1 Week Please Follow Up With: Dr. Rae When: Monday for kyphoplasty as scheduled Discharge Plan Admission Admit Date/Time: 12/19/20 13:07 Attending Provider: Obdulia Escobedo Primary Care Provider: Ghanshyam Rey Chi Consulting Providers: Lesia Rae Discharge Orders/Prescriptions Prescriptions: New gabapentin 100 mg Capsule 100 mg PO TID Qty: 1 RF: 0 Continued loperamide 2 mg capsule 2 mg PO Q6H PRN (Reason: Diarrhea) RF: 0 cholecalciferol (vitamin D3) 25 mcg (1,000 unit) tablet 1,000 unit PO DAILY RF: 0 lisinopril 10 mg tablet 10 mg PO DAILY Qty: 90 RF: 3 hydrocodone-acetaminophen 5-325 mg tablet 1 tablet PO Q6H PRN (Reason: pain) Qty: 60 RF: 0 levothyroxine 25 MCG tablet 25 mcg PO DAILY RF: 0 furosemide 40 MG tablet 40 mg PO DAILY RF: 0 Referrals: Ghanshyam Rey Chi, MD [Primary Care Provider] - Disposition Patient Disposition: Detention Facility
[2020-12-22 16:59] VITALS: BP 129/80; PULSE 77; RESP 18; TEMP 36.8; O2SAT 98
== END 2020-12-22 18:00 | disposition skilled nursing facility (03) ==
LOC: ED 11:16 → MS3 14:00
PROVIDERS: Anesthesiology; Anesthesiology Pain Medicine; Admitting Provider Internal Medicine; Emergency Provider Emergency Medicine; PCP Family Medicine Geriatric Medicine; Visit Provider Internal Medicine
PROC: 3E0S3BZ Introduction of Anesthetic Agent into Epidural Space, Percutaneous Approach (ICD-10-PCS; CPT 62322; principal; 2020-12-21 13:25)
DX: M51.36 Other intervertebral disc degeneration, lumbar region (principal); G89.29 Other chronic pain; M48.061 Spinal stenosis, lumbar region without neurogenic claudication; R06.02 Shortness of breath; M48.56XD Collapsed vertebra, not elsewhere classified, lumbar region, subsequent encounter for fracture with routine healing; E03.9 Hypothyroidism, unspecified; I10 Essential (primary) hypertension; E66.9 Obesity, unspecified; Z68.36 Body mass index [BMI] 36.0-36.9, adult; E55.9 Vitamin D deficiency, unspecified; Z79.899 Other long term (current) drug therapy
CPT/HCPCS: 01992; 62323; 64483; 72020; 72131; 80053; 84443; 85025; 87426; 96361; 96372; 96374; 96375; 96376; 97110; 97162; 97166; 97530; 97535; 99218; 99284; J7120; A4216; G0378; J2405

== ENCOUNTER 2020-12-22 18:11 | Inpatient (IN) | payer MEDICARE, SELFPAY ==
[2020-12-21 11:25] VITALS: BMI 36.1
[2020-12-22 18:23] VITALS: BP 130/81; PULSE 101; RESP 18; TEMP 36.3; O2SAT 95; BMI 35.8
[2020-12-22] MEDS: HYDROcodone Bitartrate/Apap 5/325 Tablet PO (21:15)
--- NOTE | 2020-12-22 21:45 | NURSING ---
pT C/O THAT SHE WAS TAKING 2 TABS OF NORCO ON MEDS[facility]G AND THAT 1 NORCO WAS NOT GOING TO HELP. OFFERED TO CALL MD BUT PT SAID NO SHE WILL TALK TO HIM IN AM
--- NOTE | 2020-12-22 21:48 | HP.PCM_ITS ---
HPI - General General Date of Admission: 12/22/20 Chief Complaint: Here for rehabilitation, strengthening, prior to discharge home alone. HPI Narrative 12/19/2020 COOPER ALONZO, is a 80 F who presents with below past medical history presented to [facility] [place] [facility] with back pain. Lumbar spinal stenosis, compression fracture of L2, L4, recent L4 kyphoplasty with pain management. Severe low back pain, nerve block not helpful. Pain 10 out of 10. Morphine IV, Zofran IV given. Unable to go home safely. 12/19/2020 Admit to Hospital. PT/OT, Pain management consult, IV Decadron for low back pain. 12/20/2020 Pain controlled, CT lumbar spine showed new L1 compression fracture. 12/21/2020 Stop IV Decadron, start Gabapentin 100MG TID. 12/21/2020 Pain management performed L1-L2 lumbar epidural steroid injection which was helpful. 12/22/2020 Plan L1 kyphoplasty 12/25/2020. 12/22/2020 Admit to TCU with debility, here for rehabilitation, strengthening, prior to discharge home alone. [facility] Medical History Colitis Diarrhea Essential (primary) hypertension Hemorrhoids Hypothyroidism Obesity Home Medications levothyroxine 25 mcg PO DAILY 11/09/18 [History Last Taken 12/19/20 04:00] loperamide 2 mg capsule 2 mg PO Q6H PRN 06/03/20 [History Last Taken Unknown] cholecalciferol (vitamin D3) 25 mcg (1,000 unit) tablet 1,000 unit PO DAILY tablet 07/10/20 [History Last Taken 12/18/20 18:00] lisinopril 10 mg tablet 10 mg PO DAILY #90 tablet 07/10/20 [Rx Last Taken 12/18/20 20:00] hydrocodone 5 mg-acetaminophen 325 mg tablet 1 tablet PO Q6H PRN #60 tablet 11/23/20 [Rx Last Taken 12/18/20] furosemide 40 mg PO DAILY 12/19/20 [History Last Taken 12/17/20 04:00] gabapentin 100 mg PO TID #1 cap 12/22/20 [Rx Last Taken Unknown] Allergy/AdvReac Type Severity Reaction Status Date / Time mesalamine [From Asacol] Allergy tore my Verified 12/19/20 13:55 stomach up trazodone Allergy Hives Verified 12/19/20 13:55 Family History Father Sudden cardiac , Onset Age: 90 Mother Sudden cardiac , Onset Age: 52 Brother Aneurysm, Onset Age: 70 Sister CAD (coronary artery disease) 3 stents Surgical History (Updated 12/22/20 @ 22:[address] Ghanshyam Rey MD) History of cataract surgery History of cholecystectomy History of left heart catheterization (2008) History of tooth extraction Social History (Updated 12/22/20 @ 22:[address] Ghanshyam Rey MD) adopted: No household members: none Smoking Status: Never smoker alcohol intake: current alcohol intake frequency: holidays/special occasions only Alcohol type: wine ROS Constitutional Constitutional: Denies chills, fever(s) or weight gain ENT HEENT: Denies headache(s), nasal congestion or nasal discharge Cardiovascular Cardiovascular: Denies chest pain or palpitations Respiratory/Chest Respiratory/Chest: Denies cough, excessive phlegm production or shortness of breath with exertion Gastrointestinal Gastrointestinal: Denies abdominal pain, nausea or vomiting Genitourinary Genitourinary: Denies dysuria Musculoskeletal Musculoskeletal: Denies joint pain or joint swelling Integumentary Integumentary: Denies rash or wounds Neurologic Neurologic: Denies focal weakness, numbness or tingling Psychiatric Psychiatric: Reports auditory hallucinations; Denies anxiety, depression, homicidal ideation or suicidal ideation Vital Signs Vital Signs Vital Signs: 12/22/20 18:23 12/22/20 20:11 Temperature 97.3 F L Temperature Source Oral Pulse Rate 101 H Pulse Rhythm Regular Pulse Strength Normal (2+) Respiratory Rate 18 Respiratory Effort Normal Non-Labored Respiratory Depth Normal Respiratory Pattern Normal Blood Pressure 130/81 H Blood Pressure Mean 97 Blood Pressure Source Monitor Blood Pressure Position Sitting Blood Pressure Location Right Arm Pulse Ox 95 Oxygen Delivery Method Room Air Room Air Physical Exam Const alert and oriented x3 General Appearance: cooperative HEENT normocephalic Eyes PERRL and EOMs intact bilaterally Neck supple, no JVD and no carotid bruits Resp normal respiratory effort, normal air movement and clear to auscultation bilaterally Cardio regular rate and regular rhythm GI normal to inspection, nondistended, normoactive bowel sounds, non-tender and non-distended Extremity normal capillary refill General Extremity: Negative for edema Skin no rashes or lesions noted General Skin Exam: no breakdown Psych affect normal Appearance: appropriate Assessment & Plan Assessment/Plan (1) Debility: Status: Acute Code(s): R53.81 - Other malaise (2) Essential (primary) hypertension: Status: Chronic Code(s): I10 - Essential (primary) hypertension (3) Hypothyroidism: Status: Chronic Code(s): E03.9 - Hypothyroidism, unspecified Plan: 80 year old female with below past medical history hospitalized for intractable pain secondary to compression fracture of L1, L2, L4, lumbar spinal stenosis, admitted to TCU with debility, here for rehabilitation, strengthening, prior to discharge home alone. Debility - PT/OT. Pain - [place] 5/325MG Q6H PRN. Bowel - Imodium 2MG Q6H PRN. Adult immunization - Administer Prevnar 13, Pneumovax 23, Fluzone, COVID19 vaccine as appropriate. DVT prophylaxis - Hold, not necessary. Vitamin D deficiency - D3 1000IU daily. Nutrition - Enlive 120ML 4x/day. Hypertension - Lisinopril 10MG daily, Lasix 40MG daily. Neuropathic pain - Gabapentin 100MG TID. Hypothyroidism - Levothyroxine 25MCG daily. Compression fracture of L1 - Kyphoplasty 12/25/2020 per pain management.
[2020-12-23] MEDS: HYDROcodone Bitartrate/Apap 5/325 Tablet PO ×2 (03:29→21:18)
[2020-12-23 05:40] LABS: Absolute Lymphocyte Count 1.42 X10^3/uL (0.83-4.51); Absolute Neutrophil Count 9.9 X10^3/uL (2.0-7.7); Basophil# 0.02 X10^3/uL; Basophil% 0.2 % (0-1); Hematocrit 42.8 % (37-47); Hemoglobin 13.7 g/dL (12.0-15.0); Lymphocyte # 1.42 X10^3/ul (0.83-4.51); Lymphocyte % 11.1 % (19-41); Mean Corpuscular Hgb 31.8 pg (27.0-32.0); Mean Corpuscular Volume 99.3 fL (81-99); Monocyte# 1.28 X10^3/uL; NRBC Flagged by Analyzer 0 % (0-5); Neutrophil % 77.2 % (47-70); Platelet Count 219 K/mm3 (150-450); RBC Distribution Width CV 13.7 % (11.6-14.6); RBC Distribution Width SD 50.5 fl (35.1-43.9); Red Blood Count 4.31 M/mm3 (4.2-5.4); White Blood Count 12.8 K/mm3 (4.4-11.0)
[2020-12-23 06:00] LABS: Anion Gap 5 (5-15); BUN 29 mg/dL (7-18); BUN/Creat Ratio 33.7 RATIO (10-20); Calcium,Total 8.3 mg/dL (8.5-10.1); Chloride 102 mmol/L (98-107); Creatinine, Serum 0.86 mg/dL (0.55-1.02); EST Glomerular Filtration Rate 67 mL/min (>60); Est Glom Filt Rate - Afr Amer 81 mL/min (>60); Estimated Creatinine Clearance 40.58 ml/min; Glucose 129 mg/dL (74-106); Sodium Level 138 mmol/L (136-145)
[2020-12-23 06:16] VITALS: BP 135/63; PULSE 85; RESP 18; TEMP 36.2; O2SAT 94
[2020-12-23] MEDS: Nystatin Powder 15gm Bottle 1 APPLIC TOPICAL ×2 (06:16→17:33)
[2020-12-23] MEDS: Lisinopril 10 MG Tablet PO (06:16)
[2020-12-23] MEDS: Cholecalciferol (VIT D3) 25 MCG TABLET (1,000 UNITS) PO (06:16)
[2020-12-23] MEDS: Levothyroxine 25 MCG TABLET PO (06:16)
[2020-12-23] MEDS: Furosemide 40 MG Tablet PO (06:17)
[2020-12-23] MEDS: Gabapentin 100 MG Capsule PO ×3 (08:03→17:33)
[2020-12-23] MEDS: Magnesium Citrate 300 ML PO (08:34)
--- NOTE | 2020-12-23 11:00 | PCM.PN.RX ---
Progress Note - Pharmacy Subjective: TCU Admission Objective: Allergies mesalamine [From Asacol] Allergy (Verified 12/19/20 13:55) tore my stomach up trazodone Allergy (Verified 12/19/20 13:55) Hives Current Medications Generic Name Dose Route Start Last Admin Trade Name Freq PRN Reason Stop Dose Admin Hydrocodone Bitart/Acetaminophen 2 tablet 12/23/20 08:07 Hydrocodone Bitartrate/Apap 5/325 Tablet PO Q6H PRN pain Cholecalciferol 25 mcg 12/23/20 06:00 12/23/20 06:16 Cholecalciferol (Vit D3) 25 Mcg Tablet (1,000 Units) PO 25 mcg DAILY DEMARCUS Administration Furosemide 40 mg 12/23/20 06:00 12/23/20 06:17 Furosemide 40 Mg Tablet PO 40 mg DAILY DEMARCUS Administration Gabapentin 100 mg 12/23/20 07:45 12/23/20 08:03 Gabapentin 100 Mg Capsule PO 100 mg TIDCM DEMARCUS Administration Levothyroxine Sodium 25 mcg 12/23/20 06:00 12/23/20 06:16 Levothyroxine 25 Mcg Tablet PO 25 mcg DAILY DEMARCUS Administration Lisinopril 10 mg 12/23/20 06:00 12/23/20 06:16 Lisinopril 10 Mg Tablet PO 10 mg DAILY DEMARCUS Administration Loperamide HCl 2 mg 12/22/20 18:54 Loperamide 2 Mg Capsule PO Q6H PRN Diarrhea Nutritional Formula (Lactose Free) 120 ml 12/22/20 22:00 12/23/20 06:16 Ensure Enlive 120 Ml Liquid PO 120 ml 4X/DAY DEMARCUS Administration Nystatin 1 applic 12/23/20 06:00 12/23/20 06:16 Nystatin Powder 15gm Bottle TOPICAL 1 applic BID DEMARCUS Administration Protocol Tuberculin PPD 5 tu 12/30/20 10:00 Tuberculin,Purif.Prot.Deriv. 50 Tu/Ml Vial ID 12/30/20 10:01 X1 ONE Problem List (Last Reviewed 12/22/20 @ 22:[address] Ghanshyam Rey MD) Debility (Acute) Hypothyroidism (Chronic) Essential (primary) hypertension (Chronic) Vital Signs Temp Pulse Resp BP Pulse Ox 97.1 F L 85 18 135/63 H 94 12/23/20 06:16 12/23/20 06:16 12/23/20 06:16 12/23/20 06:16 12/23/20 06:16 Oxygen Delivery Method Room Air Weight: 88.904 kg Body Mass Index (BMI) 35.8 Sodium 138 mmol/L (136-145) 12/23/20 05:20 Potassium 4.0 mmol/L (3.5-5.1) 12/23/20 05:20 Chloride 102 mmol/L (98-107) 12/23/20 05:20 Carbon Dioxide 31.0 mmol/L (21.0-32.0) 12/23/20 05:20 Anion Gap 5 (5-15) 12/23/20 05:20 BUN 29 mg/dL (7-18) H 12/23/20 05:20 Creatinine 0.86 mg/dL (0.55-1.02) 12/23/20 05:20 Est GFR (MDRD) Af Amer 81 mL/min (>60) 12/23/20 05:20 Est GFR (MDRD) Non-Af 67 mL/min (>60) 12/23/20 05:20 BUN/Creatinine Ratio 33.7 RATIO (10-20) H 12/23/20 05:20 Glucose 129 mg/dL (74-106) H 12/23/20 05:20 Assessment/Plan: 1. Pain: [place] 5/325mg 2T PO Q6H PRN pain. Please continue to monitor for increased pain, PRN usage, constipation and respiratory depression. 2. Hypertension: lisinopril 10mg PO daily and furosemide 40mg PO daily. Please continue to monitor BP (last 135/63), renal function, potassium (last 4mmol/L), cough and swelling. 3. Neuropathic pain: gabapentin 100mg PO TIDCM. Please continue to monitor renal function and for confusion. 4. Hypothyroidism: levothyroxine 25mcg PO daily. Please continue to monitor TSH and for S/S of hypo/hyperthyroidism. 5. Vitamin D deficiency: cholecalciferol 25mcg PO daily. Please continue to monitor vitamin D level (last 04/2020). Psychotropic Medications: None Unnecessary Medications: None Bowel Regimen: loperamide 2mg PO Q6H PRN diarrhea. Please continue to monitor for diarrhea and PRN usage. Date of Note:: 12/23/20
[2020-12-23] MEDS: Tuberculin,Purif.prot.deriv. 50 TU/ML Vial 5 ML ID (12:10)
--- NOTE | 2020-12-23 12:16 | PCA ---
patient voices concerns about not being able to have a BM states that she has no had a BM in 5 days . states that is not giving her the right meds to be able to go. this PHARMACY BUYER voiced patient concerns to nurse . nurse gave patient stool softeners . Now patient is upset about going to the BR too much and is short tempered with this practicing urologist and is shouting and slamming things in her room .
[2020-12-23 12:22] VITALS: PULSE 97; RESP 18; O2SAT 95
[2020-12-23 16:00] VITALS: BP 111/68; PULSE 73; RESP 16; TEMP 36.8; O2SAT 98
--- NOTE | 2020-12-23 17:35 | NURSING ---
Pt request to be put on senna x2 tabs BID. Updated Dr. Rey and ordered entered. Pt refused to take them tonight but will take them tomorrow d/t taking Mag Citrate this morning.
--- NOTE | 2020-12-23 19:30 | NURSING ---
Pt found up in room walking self to bathroom. Educated pt on the risk of falling and that if she needs to use the restroom to call on her call light. Pt upset and stated I don't want to poop in my pants and that we can not get to her fast enough. Pt got very angry and stated that i'm not to move her walker where she can't reach it and that if she wants to get up she can. Advised pt that it would be best for her to call out so that we can help with her needs. Call light within reach.
[2020-12-24 04:44] VITALS: BP 148/69; PULSE 84; RESP 18; TEMP 36.9; O2SAT 93
[2020-12-24] MEDS: Nystatin Powder 15gm Bottle 1 APPLIC TOPICAL ×2 (04:47→17:05)
[2020-12-24] MEDS: HYDROcodone Bitartrate/Apap 5/325 Tablet PO ×3 (04:57→21:14)
[2020-12-24] MEDS: Lisinopril 10 MG Tablet PO (05:00)
[2020-12-24] MEDS: Furosemide 40 MG Tablet PO (05:00)
[2020-12-24] MEDS: Levothyroxine 25 MCG TABLET PO (05:00)
[2020-12-24] MEDS: Cholecalciferol (VIT D3) 25 MCG TABLET (1,000 UNITS) PO (05:00)
[2020-12-24] MEDS: Gabapentin 100 MG Capsule PO ×3 (08:34→17:05)
--- NOTE | 2020-12-24 08:48 | NURSING ---
PT IN BATHROOM WITH THERAPY THIS MORNING,HIT HAND ON HER WALKER AND GOT A SKIN TEAR PER PT AND THERAPY. DRESSING APPLIED,RN AWARE
--- NOTE | 2020-12-24 09:24 | NURSING ---
Received call form Mirna in surgery. pt is scheduled to have Kyphoplasty tomorrow at 1315. pt is to remain NPO after midnight tonight, pt may take Synthroid, lisinopril, and Oxy tomorrow morning with sips of water.
[2020-12-24 15:33] VITALS: BP 127/68; PULSE 100; RESP 16; TEMP 36.8; O2SAT 93
--- NOTE | 2020-12-24 15:48 | CASEMGMT ---
Social Work Met with patient for initial assessment. Discussed code status. Pt confirmed DNR-CCA, no intubation. MOLST form reviewed, communication to , placed in chart. Explained [employer] insurance with NRD 12/28 and continued stay is not guaranteed. Pt's goal is to return home alone with family support soon after surgery 12/25, pending outcome. Pt agreeable to HHC vs OP. No DME needs. Provided C list of providers including quality and resource use data and consistent with the patient?s preferred geographic region, medical needs, and insurance network. SW to continue to follow. Kyung Newsome, SHANTAL SEAFOOD MANAGER
[2020-12-24 20:59] VITALS: RESP 18
[2020-12-25 05:34] VITALS: BP 125/77; PULSE 81; RESP 16; TEMP 36.6; O2SAT 95
[2020-12-25] MEDS: Levothyroxine 25 MCG TABLET PO (05:38)
[2020-12-25] MEDS: HYDROcodone Bitartrate/Apap 5/325 Tablet PO ×3 (05:38→21:49)
[2020-12-25] MEDS: Lisinopril 10 MG Tablet PO (05:38)
[2020-12-25] MEDS: Gabapentin 100 MG Capsule PO ×2 (08:31→17:21)
--- NOTE | 2020-12-25 12:19 | NURSING ---
pt off unit to surgery,kyphoplasty
[2020-12-25 12:21] VITALS: PULSE 94; RESP 18; O2SAT 97
--- NOTE | 2020-12-25 15:14 | NURSING ---
pt returned from PACU via bed. awake and oriented. resting in bed, call light in reach.
[2020-12-25 15:26] VITALS: BP 140/68; PULSE 88; RESP 16; TEMP 36.4; O2SAT 94
[2020-12-25] MEDS: Senna/Docusate Sodium 1 Tablet 2 TABLET PO (17:21)
[2020-12-25] MEDS: Nystatin Powder 15gm Bottle 1 APPLIC TOPICAL (17:21)
[2020-12-25] MEDS: Calcium Carbonate 500 MG Tablet 1000 MG PO (21:59)
--- NOTE | 2020-12-25 23:26 | NURSING ---
pt up in chair at the beginning of shift and reports that she is having a lot of pain and itching and heartburn. unable to medicate pt d/t not time yet. pt offered jesus joanne for heartburn and ice pack for pain . pt was agreeable to trying this, rn made aware and called the doctor, to get an order for tums , which is what pt take at home will continue to monitor for effectiveness. 2148 pt given tums for heartburn, then pt assisted to bed. pt encourage to take 2 pain pills vs one for better pain control and pt was agree able
[2020-12-26] MEDS: Nystatin Powder 15gm Bottle 1 APPLIC TOPICAL ×2 (04:48→17:48)
[2020-12-26] MEDS: Senna/Docusate Sodium 1 Tablet 2 TABLET PO ×2 (04:50→17:43)
[2020-12-26] MEDS: Lisinopril 10 MG Tablet PO (04:50)
[2020-12-26] MEDS: Furosemide 40 MG Tablet PO (04:50)
[2020-12-26] MEDS: Cholecalciferol (VIT D3) 25 MCG TABLET (1,000 UNITS) PO (04:51)
[2020-12-26] MEDS: Levothyroxine 25 MCG TABLET PO (04:51)
[2020-12-26] MEDS: HYDROcodone Bitartrate/Apap 5/325 Tablet PO ×3 (04:51→20:13)
[2020-12-26 04:56] VITALS: BP 131/71; PULSE 84; RESP 16; TEMP 36.6; O2SAT 94
[2020-12-26] MEDS: Gabapentin 100 MG Capsule PO ×3 (09:11→17:43)
[2020-12-26 14:26] VITALS: BP 127/70; PULSE 88; RESP 14; TEMP 36.7; O2SAT 95
[2020-12-27 03:22] VITALS: BP 138/61; PULSE 78; RESP 16; TEMP 36.4; O2SAT 98
[2020-12-27] MEDS: HYDROcodone Bitartrate/Apap 5/325 Tablet PO ×3 (03:25→20:58)
[2020-12-27] MEDS: Furosemide 40 MG Tablet PO (05:02)
[2020-12-27] MEDS: Cholecalciferol (VIT D3) 25 MCG TABLET (1,000 UNITS) PO (05:02)
[2020-12-27] MEDS: Senna/Docusate Sodium 1 Tablet 2 TABLET PO ×2 (05:02→17:34)
[2020-12-27] MEDS: Levothyroxine 25 MCG TABLET PO (05:02)
[2020-12-27] MEDS: Nystatin Powder 15gm Bottle 1 APPLIC TOPICAL ×2 (05:02→17:34)
[2020-12-27] MEDS: Lisinopril 10 MG Tablet PO (05:02)
[2020-12-27] MEDS: Gabapentin 100 MG Capsule PO ×3 (08:59→17:34)
[2020-12-27 10:00] VITALS: PULSE 90; RESP 18; O2SAT 95
[2020-12-27 15:57] VITALS: BP 143/63; PULSE 76; RESP 18; TEMP 36.7; O2SAT 98
[2020-12-27] MEDS: Calcium Carbonate 500 MG Tablet 1000 MG PO (21:00)
[2020-12-28] MEDS: HYDROcodone Bitartrate/Apap 5/325 Tablet PO ×3 (05:20→20:11)
[2020-12-28] MEDS: Nystatin Powder 15gm Bottle 1 APPLIC TOPICAL ×2 (05:22→17:52)
[2020-12-28] MEDS: Levothyroxine 25 MCG TABLET PO (05:23)
[2020-12-28] MEDS: Lisinopril 10 MG Tablet PO (05:23)
[2020-12-28] MEDS: Cholecalciferol (VIT D3) 25 MCG TABLET (1,000 UNITS) PO (05:23)
[2020-12-28] MEDS: Senna/Docusate Sodium 1 Tablet 2 TABLET PO (05:23)
[2020-12-28] MEDS: Furosemide 40 MG Tablet PO (05:23)
--- NOTE | 2020-12-28 05:27 | NURSING ---
Pt calls for pain medication and yells at this nurse when pain level questioned. Pt in tears and reports pain at 10/10. Verbalizes she has been waiting for pain medication for approximately 2 hours. Has not requested any pain medication in this time period. Generalized fine tremors due to frustrations. Reports she has not been able to find a comfortable chair in the unit and is unable to become comfortable in bed. Active listening provided throughout duration this nurse spent in room. Pt fluctuates between continued anger with discomfort then apologizing for irritability expressed w/ this nurse.
[2020-12-28] MEDS: Gabapentin 100 MG Capsule PO ×3 (09:29→17:52)
[2020-12-28 09:31] VITALS: PULSE 98; RESP 16; O2SAT 96
--- NOTE | 2020-12-28 09:47 | NURSING ---
daughter called to pt to update her that Dr Rae would be in to see her today d/t her pain 02/04. offered polar care and pt stated that would be helpful. pt sitting in straight back chair which is helping her pain some. explained to pt if she was uncomfortable to please let nurse know and she would notify MD sooner. pt verbalized understanding, call light in reach.
--- NOTE | 2020-12-28 10:23 | CASEMGMT ---
Social Work Followed up with pt on DC plans. Pt states Dr. Rae will see her today and she will determine when she wants to DC after that conversation. Discussed DC needs. pt requesting half-bed rail and prefers HHC vs OP therapy. Provided HHC list of providers including quality and resource use data and consistent with the patient?s preferred geographic region, medical needs, and insurance network. Pt to review and notify SW of preference. Will continue to follow. SHANTAL BundyW
[2020-12-28 11:25] VITALS: BP 108/67; PULSE 89; RESP 16; TEMP 36.7; O2SAT 95
[2020-12-28 15:07] VITALS: BP 135/63; PULSE 75; RESP 16; TEMP 36.2; O2SAT 94
--- NOTE | 2020-12-28 17:01 | CHAPLAIN ---
Type of Pastoral Visit _x__ Initial Visit ___ Follow-up Visit ___ On-call Visit ___ General Patient Visit ___ Spiritual Assessment ___ Family Conference ___ Bereavement ___ Rapid Response ___ Code Blue ___ Other (describe below) Pastoral Care Referral From _x__ Patient ___ Family ___ Nurse ___ Physician ___ Bottle Machine Operator ___ Motel Front Desk Attendant ___ Other (describe below) Sacrament/Intervention _x__ Active listening ___ Anointing ___ Jainism ___ Bereavement ___ Communion _x__ Cadence exploration ___ _x__ Life review _x__ Prayer ___ Reconciliation ___ Sacrament of Sick _x__ Supportive presence ___ Wedding ___ Other (describe below) Pastoral Comments
[2020-12-29] MEDS: HYDROcodone Bitartrate/Apap 5/325 Tablet PO ×3 (03:50→20:46)
[2020-12-29 04:04] VITALS: BP 155/89; PULSE 87; RESP 16; TEMP 36.9; O2SAT 94
[2020-12-29] MEDS: Cholecalciferol (VIT D3) 25 MCG TABLET (1,000 UNITS) PO (06:17)
[2020-12-29] MEDS: Furosemide 40 MG Tablet PO (06:18)
[2020-12-29] MEDS: Lisinopril 10 MG Tablet PO (06:18)
[2020-12-29] MEDS: Senna/Docusate Sodium 1 Tablet 2 TABLET PO (06:18)
[2020-12-29] MEDS: Levothyroxine 25 MCG TABLET PO (06:18)
[2020-12-29] MEDS: Nystatin Powder 15gm Bottle 1 APPLIC TOPICAL (06:19)
[2020-12-29] MEDS: Gabapentin 100 MG Capsule PO ×3 (08:04→18:17)
--- NOTE | 2020-12-29 09:50 | CASEMGMT ---
Social Work Spoke with pt about DC plans. Pt stated Dr. Rae visited her after hours and he reports it is arthritis, thus, no further tx recommended. Pt is ready to DC. IDT agreeable to DC 12/30. Pt agreeable to [facility]. Referral made for PT/OT/SN. Dtr to transport pt. Plan: DC home alone 12/30, [facility] PT/OT/SN, half bed rail Kyung Newsome, SHANTAL BOLANOSW
[2020-12-29 11:17] VITALS: PULSE 90; RESP 16; O2SAT 99
[2020-12-29 12:48] VITALS: BP 119/56; PULSE 96; RESP 16; TEMP 36.1; O2SAT 97
--- NOTE | 2020-12-29 20:25 | DS.PCM_ITS ---
Providers Date of Admission: 12/22/20 Primary Care Physician: Dr. Ghanshyam Rey MD Reason For Visit: COMPRESSION FRACTURE L1 Diagnosis Discharge Diagnosis (1) Debility: Status: Acute Code(s): R53.81 - Other malaise (2) Essential (primary) hypertension: Status: Chronic Code(s): I10 - Essential (primary) hypertension (3) Hypothyroidism: Status: Chronic Code(s): E03.9 - Hypothyroidism, unspecified Medications at Discharge Home Medications levothyroxine 25 mcg PO DAILY 11/09/18 cholecalciferol (vitamin D3) 25 mcg (1,000 unit) tablet 1,000 unit PO DAILY tablet 07/10/20 lisinopril 10 mg tablet 10 mg PO DAILY #90 tablet 07/10/20 furosemide 40 mg PO DAILY 12/19/20 gabapentin 100 mg PO TID #1 cap 12/22/20 Hospital Course Operations None Procedures - (L1 kyphoplasty) Summary of Care Provided Minutes Spent on Discharge: 35 Hospital Course: 80 year old female with below past medical history hospitalized for intractable pain secondary to compression fracture of L1, L2, L4, lumbar spinal stenosis, admitted to TCU with debility, here for rehabilitation, strengthening, prior to discharge home alone. Resident underwent L1 kyphoplasty while on TCU. Discharge home alone 12/30, [facility] PT/OT/SN, half bed rail. Physical Exam Const alert and oriented x3 General Appearance: cooperative HEENT normocephalic Eyes PERRL and EOMs intact bilaterally Neck supple, no JVD and no carotid bruits Resp normal respiratory effort, normal air movement and clear to auscultation bilaterally Cardio regular rate and regular rhythm GI normal to inspection, nondistended, normoactive bowel sounds, non-tender and non-distended Extremity normal capillary refill General Extremity: Negative for edema Skin no rashes or lesions noted General Skin Exam: no breakdown Psych affect normal Appearance: appropriate ABG / Lab / Microbiology Data Result Diagrams: 12/23/20 05:20 12/23/20 05:20 Microbiology: Microbiology 12/24/20 08:40 Mucosa - Nose SARS-CoV-2 Antigen (Rapid) - Final D/C Instructions Discharge Diet: No restrictions Discharge Activity: Return to Normal Activity and May Shower Weight Bearing Status: Weight bearing as tolerated Call your doctor if you observe: Fever of 101 or Higher, Inability to urinate, Inability to have a bowel movement, Shortness of breath, Chest pain and Uncontrolled pain Additional Instructions: Discharge home alone 12/30, [facility] PT/OT/SN, half bed rail. Please follow up with your Primary Care Physician in: 1 week. Please Follow Up With: Lesia Rae MD When: 2 weeks. Meaningful Use Info Meaningful Use Diagnoses (Choose all that apply): None applicable Discharge Plan Admission Admit Date/Time: 12/22/20 18:11 Primary Reason for Your Visit: Debility Attending Provider: Ghanshyam Rey Chi Primary Care Provider: Ghanshyam Rey Chi Consulting Providers: Lesia Rae Instructions Additional Instructions / Restrictions: Discharge home alone 12/30, [facility] PT/OT/SN, half bed rail. Discharge Orders/Prescriptions Prescriptions: Continued cholecalciferol (vitamin D3) 25 mcg (1,000 unit) tablet 1,000 unit PO DAILY RF: 0 lisinopril 10 mg tablet 10 mg PO DAILY Qty: 90 RF: 3 levothyroxine 25 MCG tablet 25 mcg PO DAILY RF: 0 furosemide 40 MG tablet 40 mg PO DAILY RF: 0 gabapentin 100 mg Capsule 100 mg PO TID Qty: 1 RF: 0 Discontinued loperamide 2 mg capsule 2 mg PO Q6H PRN (Reason: Diarrhea) RF: 0 hydrocodone-acetaminophen 5-325 mg tablet 1 tablet PO Q6H PRN (Reason: pain) Qty: 60 RF: 0 Referrals: Ghanshyam Rey Chi, MD [Primary Care Provider] - Disposition Disposition (needs filled in before D/C Order can be placed): Home, self care
[2020-12-29] MEDS: Calcium Carbonate 500 MG Tablet 1000 MG PO (20:46)
[2020-12-30 03:31] VITALS: PULSE 86; RESP 16; O2SAT 98
[2020-12-30 03:36] VITALS: BP 137/69; PULSE 86; RESP 16; TEMP 36.4; O2SAT 98
[2020-12-30] MEDS: Nystatin Powder 15gm Bottle 1 APPLIC TOPICAL (04:56)
[2020-12-30] MEDS: Levothyroxine 25 MCG TABLET PO (04:58)
[2020-12-30] MEDS: Cholecalciferol (VIT D3) 25 MCG TABLET (1,000 UNITS) PO (04:59)
[2020-12-30] MEDS: Lisinopril 10 MG Tablet PO (04:59)
[2020-12-30] MEDS: Furosemide 40 MG Tablet PO (05:01)
[2020-12-30 06:02] LABS: Absolute Lymphocyte Count 1.53 X10^3/uL (0.83-4.51); Absolute Neutrophil Count 7.8 X10^3/uL (2.0-7.7); Basophil# 0.02 X10^3/uL; Basophil% 0.2 % (0-1); Eosinophil# 0.04 X10^3/uL; Eosinophils% 0.4 % (0-5); Hematocrit 42.3 % (37-47); Hemoglobin 13.2 g/dL (12.0-15.0); Lymphocyte # 1.53 X10^3/ul (0.83-4.51); Lymphocyte % 14.5 % (19-41); Mean Corp Hgb Conc 31.2 g/dL (32-36); Mean Corpuscular Hgb 31.9 pg (27.0-32.0); Mean Corpuscular Volume 102.2 fL (81-99); Monocyte% 9.5 % (0-10); NRBC Flagged by Analyzer 0 % (0-5); Neutrophil # 7.82 X10^3/uL (2.7-7.7); Neutrophil % 74.1 % (47-70); Platelet Count 201 K/mm3 (150-450); RBC Distribution Width CV 13.9 % (11.6-14.6); RBC Distribution Width SD 52.9 fl (35.1-43.9); Red Blood Count 4.14 M/mm3 (4.2-5.4); White Blood Count 10.6 K/mm3 (4.4-11.0)
[2020-12-30 06:32] LABS: Anion Gap 4 (5-15); BUN 38 mg/dL (7-18); BUN/Creat Ratio 44.4 RATIO (10-20); Calcium,Total 8.6 mg/dL (8.5-10.1); Chloride 104 mmol/L (98-107); Creatinine, Serum 0.86 mg/dL (0.55-1.02); EST Glomerular Filtration Rate 68 mL/min (>60); Est Glom Filt Rate - Afr Amer 82 mL/min (>60); Estimated Creatinine Clearance 40.58 ml/min; Glucose 95 mg/dL (74-106); Potassium 3.8 mmol/L (3.5-5.1); Sodium Level 138 mmol/L (136-145)
[2020-12-30] MEDS: HYDROcodone Bitartrate/Apap 5/325 Tablet PO (08:32)
[2020-12-30] MEDS: Gabapentin 100 MG Capsule PO (08:33)
[2020-12-30 10:12] VITALS: BP 113/59; PULSE 71; RESP 18; TEMP 36.7; O2SAT 96
--- NOTE | 2021-01-04 09:53 | MDS.RN ---
Information for the mds was obtained from review of the clinical record, interview of resident, staff, and direct observation of resident's care.
== END 2020-12-30 09:50 | disposition home health service (06) | DRG 561 ==
PROVIDERS: Admitting Provider Family Medicine Geriatric Medicine; PCP Family Medicine Geriatric Medicine; Visit Provider Family Medicine Geriatric Medicine
DX: M48.56XD Collapsed vertebra, not elsewhere classified, lumbar region, subsequent encounter for fracture with routine healing (principal); M48.061 Spinal stenosis, lumbar region without neurogenic claudication; I10 Essential (primary) hypertension; E66.9 Obesity, unspecified; E03.9 Hypothyroidism, unspecified; Z79.899 Other long term (current) drug therapy; E55.9 Vitamin D deficiency, unspecified
CPT/HCPCS: 36415; 80048; 85025; 87426; 97110; 97116; 97162; 97166; 97530; 97535; 97802; J2405

== ENCOUNTER → 2020-12-25 12:24 | Day surgery (SDC) | payer MEDICARE, SELFPAY ==
[2020-12-21 11:25] VITALS: BMI 36.1
[2020-12-22 18:23] VITALS: BMI 35.8
[2020-12-25 12:37] VITALS: BP 117/60; PULSE 81; RESP 14; TEMP 36.6; O2SAT 98; BMI 34.7
[2020-12-25] MEDS: Lactated Ringers 1,000 ML 100 ML IV (12:53)
[2020-12-25] MEDS: Bupivacaine Mpf 0.5% 30 ML VIAL (13:06)
--- NOTE | 2020-12-25 13:30 | BONBX_PTH ---
PATIENT: COOPER ALONZO [place] [facility] [id number] AGE/SX: 85/F ROOM: RE12/25/[address]: Dr. Lesia Rae MD : 1940 BED: DIS: SPEC #: [id number] RECD: 12/25/20 14:22 STATUS: CLARENCE RESkylar #: [id number] GINA: 12/25/20 13:[address]: Lesia Rae DEPT: SURGICAL PATHOLOGY RECD BY: Farheen Gardner ENTERED: 12/28/20 08:03 SP TYPE: Bone OTHR DR: Dr. Ghanshyam Rey MD Tissues: Vertebra, NOS Procedures: Decalcification bone/plaque Surgery Specimen Level V HEADER OPERATION: Kyphoplasty L1 PRE-OP DIAGNOSIS: Compression fracture TISSUE SUBMITTED: Bone biopsy MICROSCOPIC DIAGNOSIS Bone biopsy, kyphoplasty L1: Pieces of bone with reactive changes and focal area of old hemorrhage, clinically compression fracture. Negative for malignancy. See comment. SJ:chago 12/29/2020 COMMENT Hematopoietic marrow with trilineage hematopoiesis is noted. MICROSCOPIC DESCRIPTION Slides are reviewed. GROSS DESCRIPTION Received in fixative is one container labeled with the patient's name and designated bone biopsy. The specimen consists of multiple fragments of bone that in aggregate measure 0.4 x 0.4 x 0.1 cm. The specimen is totally submitted in one cassette after decalcification. / LIZBETH:chago 12/28/20 TC:5 CPT: 89670, 50778
--- NOTE | 2020-12-25 13:30 | RAD_ITS ---
CLINICAL HISTORY: Female, 80 years old. Low back pain. PROCEDURE: KYPHOPLASTY - LUMBAR/FLUORO FLUOROSCOPY TIME (if supplied): (1 minute and 20 seconds) minutes/seconds. 7 fluoroscopic images were obtained. TECHNIQUE: (All elements of maximal sterile barrier technique followed, including US elements as applicable) Intraoperative imaging provided for kyphoplasty of the L1 vertebrae. RAD/Lumbar Spine 2 or 3 Views IMPRESSION: Intraoperative imaging provided for kyphoplasty of the L1 vertebrae. Electronically Signed: Josep Elkins MD at 14:18 EDT , Service support ,
[2020-12-25 14:04] VITALS: BP 117/60; BP 126/64; PULSE 79; RESP 16; TEMP 37; O2SAT 99
[2020-12-25 14:15] VITALS: BP 101/55; BP 117/60; PULSE 77; RESP 16; O2SAT 97
[2020-12-25 14:30] VITALS: BP 106/41; BP 117/60; PULSE 72; RESP 16; O2SAT 96
[2020-12-25 14:41] VITALS: BP 102/45; BP 117/60; PULSE 71; RESP 16; TEMP 36.7; O2SAT 96
== END ==
PROVIDERS: PCP Family Medicine Geriatric Medicine; Referring Provider Anesthesiology Pain Medicine; Visit Provider Anesthesiology Pain Medicine
DX: M80.08XA Age-related osteoporosis with current pathological fracture, vertebra(e), initial encounter for fracture (principal); I10 Essential (primary) hypertension; I73.00 Raynaud's syndrome without gangrene; E11.9 Type 2 diabetes mellitus without complications; M19.90 Unspecified osteoarthritis, unspecified site; F17.200 Nicotine dependence, unspecified, uncomplicated; Z79.899 Other long term (current) drug therapy
CPT/HCPCS: 22514; 72100; 76000; 88307; 88311; J7120

== ENCOUNTER → 2021-01-12 11:52 | Outpatient (CLI) | payer MEDICARE, SELFPAY ==
[2020-12-25 12:37] VITALS: BMI 34.7
[2021-01-12 12:36] LABS: Anion Gap 7 (5-15); BUN 35 mg/dL (7-18); BUN/Creat Ratio 33.7 RATIO (10-20); Calcium,Total 9.2 mg/dL (8.5-10.1); Chloride 100 mmol/L (98-107); Creatinine, Serum 1.04 mg/dL (0.55-1.02); EST Glomerular Filtration Rate 54 mL/min (>60); Est Glom Filt Rate - Afr Amer 65 mL/min (>60); Glucose 126 mg/dL (74-106); Potassium 4.1 mmol/L (3.5-5.1); Sodium Level 134 mmol/L (136-145)
== END ==
PROVIDERS: PCP Family Medicine Geriatric Medicine; Visit Provider Family Medicine Geriatric Medicine
DX: E87.6 Hypokalemia (principal); R60.9 Edema, unspecified
CPT/HCPCS: 36415; 80048

== ENCOUNTER → 2021-01-27 10:05 | Outpatient (CLI) | payer MEDICARE, SELFPAY ==
[2021-01-27 08:52] VITALS: BMI 34.7
--- NOTE | 2021-01-27 10:07 | RAD_ITS ---
STUDY: X-RAY CHEST REASON FOR EXAM: Female, 80 years old. Cough, SOB TECHNIQUE: PA and lateral views of the chest. COMPARISON: Comparison is made with prior study dated 07/26/2020. FINDINGS: There is elevation of the right hemidiaphragm. Increased markings at the right lung base suggestive of atelectasis and/or early infiltrate. The left lung base is clear. There is no demonstrated pleural abnormality. Normal size heart. Normal mediastinum and behzad. Normal visualized pulmonary arteries. There is atherosclerotic tortuosity of the aortic arch and descending thoracic aorta. There is demineralization of the osseous structures. Increased kyphosis. Prior vertebral plasty of the L1 vertebrae. Normal visualized ribs, clavicles, and shoulders. There is no demonstrated abnormality of the visualized soft tissue structures of the upper abdomen. RAD/Chest PA and Lateral IMPRESSION: Elevation of the right hemidiaphragm with right basilar atelectasis and/or early infiltrate. Follow-up is recommended. Electronically Signed: Josep Elkins MD at 10:45 EDT , Service support ,
[2021-01-27 11:21] LABS: Absolute Lymphocyte Count 1.48 X10^3/uL (0.83-4.51); Absolute Neutrophil Count 9.9 X10^3/uL (2.0-7.7); Basophil# 0.04 X10^3/uL; Basophil% 0.3 % (0-1); Eosinophil# 0.02 X10^3/uL; Eosinophils% 0.2 % (0-5); Hematocrit 40.1 % (37-47); Lymphocyte # 1.48 X10^3/ul (0.83-4.51); Lymphocyte % 11.7 % (19-41); Mean Corp Hgb Conc 32.4 g/dL (32-36); Mean Corpuscular Hgb 32.5 pg (27.0-32.0); Mean Corpuscular Volume 100.3 fL (81-99); Mean Platelet Vol. 9.7 fl (6.2-12.0); Monocyte# 0.98 X10^3/uL; Monocyte% 7.7 % (0-10); NRBC Flagged by Analyzer 0 % (0-5); Neutrophil # 9.86 X10^3/uL (2.7-7.7); Neutrophil % 77.8 % (47-70); Platelet Count 276 K/mm3 (150-450); RBC Distribution Width CV 13.6 % (11.6-14.6); White Blood Count 12.7 K/mm3 (4.4-11.0)
[2021-01-27 11:43] LABS: Anion Gap 7 (5-15); BNP,B-Type NATRIURETIC PEPTIDE 39.5 pg/mL (0-100); BUN 29 mg/dL (7-18); BUN/Creat Ratio 25.7 RATIO (10-20); Calcium,Total 9.1 mg/dL (8.5-10.1); Chloride 99 mmol/L (98-107); Creatinine, Serum 1.13 mg/dL (0.55-1.02); EST Glomerular Filtration Rate 49 mL/min (>60); Est Glom Filt Rate - Afr Amer 59 mL/min (>60); Glucose 114 mg/dL (74-106); Potassium 4.1 mmol/L (3.5-5.1); Sodium Level 135 mmol/L (136-145)
== END ==
PROVIDERS: PCP Family Medicine Geriatric Medicine; Referring Provider Nurse Practitioner Family; Visit Provider Nurse Practitioner Family
DX: R06.00 Dyspnea, unspecified (principal); I10 Essential (primary) hypertension; Z79.899 Other long term (current) drug therapy
CPT/HCPCS: 36415; 71046; 80048; 83880; 85025